=== PATIENT | female | born 1940 | race Caucasian/White ===

== ENCOUNTER 2022-05-09 21:10 | Observation (INO) | payer MEDICARE, SELFPAY ==
[2022-05-09] VITALS (11 sets, daily range): BP systolic 176–229; BP diastolic 99–122; PULSE 81–90; RESP 13–21; TEMP 36.4; O2SAT 96–99
--- NOTE | ~2022-05-09 | CT_ITS ---
EXAMINATION: CT abdomen pelvis wo con DATE: 05/09/2022 23:55 INDICATION: Lower abdominal pain, nausea and anorexia. TECHNIQUE: Computed tomography (CT) of the abdomen and pelvis was performed without intravenous contr ast. Automated exposure control and iterative reconstruction technique were employed. The dose-length product was 179.16 mGy-cm. COMPARISON: None FINDINGS: Atelectasis at the medial left lower lobe along side a moderate to large sliding-type hiatal hernia a nd tortuous thoracic aorta. Small left pleural effusion. Right lung remains clear. Cardiomegaly. Smal l pericardial effusion. Atherosclerotic coronary artery calcification and aortic valve calcification. Cholecystectomy clips at the gallbladder fossa. Liver, spleen and bilateral adrenal glands are yahir l. Small bilateral renal cysts, the largest on the right measuring 1.4 cm. There is mild colonic dive rticulosis with a sigmoid predominance. There is no adjacent inflammatory change to suggest divertic ulitis. Loop of nonobstructed small bowel extends into a small infraumbilical ventral hernia position ed along the inferomedial margin of a prior right lower quadrant ventral hernia mesh repair. There ap pears be some wall thickening and inflammatory stranding along the duodenum suggesting duodenitis. In flammatory stranding is also present around the head of the pancreas and differential would include a cute interstitial pancreatitis. Bilateral small fat-containing inguinal hernias. The appendix is not visualized. No pericecal inflammatory change to suggest acute appendicitis. Bladder is normal. No andrea e intraperitoneal gas or fluid. No pathologically enlarged abdominal or pelvic lymphadenopathy. Mild to moderate lumbar spondylosis. IMPRESSION: 1. Wall thickening and inflammatory stranding at the duodenum consistent with duodenitis which most l ikely either infectious or inflammatory in etiology. This could also be due to acute interstitial quevedo creatitis and would correlate with amylase and lipase levels. 2. Nonobstructed loop of small bowel extends into a small infraumbilical ventral hernia along side a prior right lower quadrant hernia mesh repair. 3. Moderate to large sliding-type hiatal hernia. 4. Small left pleural effusion. 5. Cardiomediastinal and small pericardial effusion. Reviewed, dictated and finalized at location A. IMPRESSION: 1. Wall thickening and inflammatory stranding at the duodenum consistent with d uodenitis which most likely either infectious or inflammatory in etiology. This could also be due to acute interstitial pancreatitis and would correlate with amylase and lipase levels. 2. Nonobstructed loop of small bowel extends into a small infraumbilical ventra l hernia along side a prior right lower quadrant hernia mesh repair. 3. Moderate to large sliding-type hiatal hernia. 4. Small left pleural effusion. 5. Cardiomediastinal and small pericardial effusion.
--- NOTE | ~2022-05-09 | XR_ITS ---
EXAMINATION: XR chest 2V DATE: 05/09/2022 22:23 INDICATION: Weakness. TECHNIQUE: frontal view of the chest was obtained. COMPARISON: None FINDINGS: Likely small bilateral pleural effusions with mild blunting at the bilateral posterior sulci. No othe r airspace opacities, pulmonary edema or pneumothorax. Cardiomegaly. Moderate-sized retrocardiac hiat al hernia. Cholecystectomy clips in right upper quadrant. Multiple surgical clips at the left side of the neck. Incompletely visualized fracture suggested at the left greater tuberosity. IMPRESSION: 1. Likely small bilateral pleural effusions. 2. Cardiomegaly. 3. Moderate-sized hiatal hernia. 4. Suggestion of a minimally displaced fracture at the greater tuberosity of the proximal left humeru s. Appearance suggests this is subacute or chronic. Correlate for history of prior trauma. Reviewed, dictated and finalized at location A. IMPRESSION: 1. Likely small bilateral pleural effusions. 2. Cardiomegaly. 3. Moderate-sized hiatal hernia. 4. Suggestion of a minimally displaced fracture at the greater tuberosity of th e proximal left humerus. Appearance suggests this is subacute or chronic. Corre late for history of prior trauma.
--- NOTE | 2022-05-09 22:11 | ECG_ITS ---
Measurements Intervals [place] Rate: 81 P: [place]: 0 QRS: -2 QRSD: 80 T: 202 QT: 389 QTc: 454 Interpretive Statements ECTOPIC ATRIAL RHYTHM CANNOT RULE OUT SEPTAL INFARCT, AGE INDETERMINATE BORDERLINE T WAVE ABNORMALITY- DIFFUSE LEADS ABNORMAL ECG NO PREVIOUS ECG AVAILABLE FOR COMPARISON Electronically Signed On 05-10-2022 7:26:38 CDT by Xavier De León D.O.
--- NOTE | 2022-05-09 22:35 | ED.GENADULT ---
HPI - General Adult General Chief complaint: Unspecified Stated complaint: not feeling well after teeth pulled Time Seen by Provider: 05/09/22 22:11 Source: patient and family Mode of arrival: wheelchair Limitations: no limitations History of Present Illness HPI narrative: This is a 81 year old female that presents to the ER for generalized weakness. Reports she had several teeth pulled last week. Since the procedure she has mild wanted to eat much. She has been reporting nausea and abdominal discomfort. She has not been taking any of her medications. Denies fever or vomiting. Related Data Home Medications Medication Instructions Recorded Confirmed albuterol sulfate 90 mcg/actuation inhalation 05/09/22 05/09/22 aerosol inhaler aspirin 05/09/22 atorvastatin 10 mg tablet mg 05/09/22 hydralazine 50 mg tablet mg 05/09/22 hydroxyzine HCl 25 mg tablet mg 05/09/22 levetiracetam 1,000 mg tablet mg PO 05/09/22 metoprolol tartrate 50 mg tablet mg 05/09/22 omeprazole 20 mg capsule,delayed mg 05/09/22 release primidone 50 mg tablet mg 05/09/22 sertraline 50 mg tablet mg 05/09/22 Allergies Allergy/AdvReac Type Severity Reaction Status Date / Time acetaminophen [From [place]] Allergy Nausea and Verified 05/09/22 21:21 Vomiting clarithromycin Allergy Rash Verified 05/09/22 21:21 codeine Allergy Nausea and Verified 05/09/22 21:21 Vomiting hydrocodone [From [place]] Allergy Nausea and Verified 05/09/22 21:21 Vomiting Iodine and Iodide Containing Allergy Rash Verified 05/09/22 21:21 Produc Latex, Natural Rubber Allergy Hives Verified 05/09/22 21:21 nifedipine Allergy Unknown Verified 05/09/22 21:21 oxycodone Allergy Hives Verified 05/09/22 21:21 prednisone Allergy Unknown Verified 05/09/22 21:21 propoxyphene Allergy Nausea Verified 05/09/22 21:21 Sulfa (Sulfonamide Allergy Rash Verified 05/09/22 21:21 Antibiotics) sulfanilamide Allergy Vomiting Verified 05/09/22 21:21 tetracycline Allergy Rash Verified 05/09/22 21:21 potassium bicarb Allergy Other Uncoded 05/09/22 21:21 Review of Systems Review of Systems: CONSTITUTIONAL: Denies fever ENT: Reports dentalgia CARDIOVASCULAR: Denies chest pain, or edema. RESPIRATORY: Denies dyspnea. GASTROINTESTINAL: Reports abdominal pain, nausea. Denies vomiting, or diarrhea. GENITOURINARY: Denies dysuria NEUROLOGIC: Reports generalized weakness. All systems reviewed & are unremarkable except as noted in HPI and below [facility] Past Medical History Medical History (Updated 05/10/22 @ 02:42 by Johanna Ruelas PA-C) History of gastroesophageal reflux (GERD) History of hyperlipidemia History of hypertension Social History Social History (Updated 05/09/22 @ 22:41 by Johanna Ruelas PA-C) Smoking status: Never smoker Exam Narrative: GENERAL: Elderly, thin, and in no acute distress. HEAD: Normocephalic, atraumatic. EYES: EOMI. ENT: Nares clear, no rhinorrhea or epistaxis. Mucous membranes moist. Oropharynx without tonsillar hypertrophy exudate or other lesions. NECK: Supple. No adenopathy or masses. CHEST: Clear to auscultation. No respiratory distress. No wheezes rales or rhonchi HEART: Regular rate and rhythm. No murmur heard. Normal peripheral pulses. ABDOMEN: Soft, nondistended, normal active bowel sounds. Mild tenderness to palpation throughout the abdomen, without guarding EXTREMITIES: Normal range of motion. No edema. SKIN: Warm, dry, no rash. NEURO: No focal deficits. Alert and oriented x3. PSYCH: Normal mood and affect Course Consultations Consultation #1: Spoke with hospitalist about patient and workup who accepts admission Date: 05/10/22 Vital Signs Vital signs: Vital Signs Temperature 97.6 F 05/09/22 21:13 Pulse Rate 90 05/09/22 21:13 Respiratory Rate 20 05/09/22 21:13 Blood Pressure 229/105 H 05/09/22 21:13 Pulse Oximetry 99 05/09/22 21:13 Oxygen Delivery Room Air 05/09/22 21:13 Temper
[2022-05-09 22:58] LABS: Basophils Percent Auto 0.2 % (0.2-1.2); Hematocrit 28.8 % (37.0-47.0); Hemoglobin 8.4 g/dL (12.0-15.0); Immature Granulocyte Absolute 0.06 K/mm3 (0.00-0.031); Immature Granulocyte Percent A 0.5 % (0-0.5); Lymphocytes Absolute Auto 1.09 K/mm3 (0.9-3.2); Lymphocytes Percent Auto 8.6 % (18.3-44.2); Mean Corpuscular HGB Conc 29.2 g/dl (32-36); Mean Corpuscular Hemoglobin 22.2 pg (26-34); Mean Corpuscular Volume 76.2 fl (80-100); Mean Platelet Volume 9.7 fl (7.4-10.4); Monocytes Absolute Auto 0.8 K/mm3 (0.1-0.6); Monocytes Percent Auto 6.1 % (2.6-8.5); Neutrophils Absolute Auto 10.7 K/mm3 (1.3-6.7); Neutrophils Percent Auto 84.6 % (45.5-73.1); Platelet Count Result 382 k/mm3 (150-375); Red Blood Count 3.78 M/mm3 (4.2-5.4); Red Cell Distribution Width 20.6 % (11.5-14.5); White Blood Count 12.7 K/mm3 (4.5-10.0)
[2022-05-09] MEDS: ONDANSETRON INJ 4 MG/2 ML VIAL IV PUSH (23:02)
[2022-05-09] MEDS: SODIUM CHLORIDE 0.9% IV 1,000 ML 125 ML IV CONT (23:02)
[2022-05-09] MEDS: FAMOTIDINE 20 MG/2 ML VIAL IV PUSH (23:04)
[2022-05-09 23:06] LABS: INR 1.2; Prothrombin Time 14.5 Seconds (11.1-14.7)
[2022-05-09 23:07] LABS: Partial Thromboplastin Time 32.1 SECONDS (22.3-36.8)
[2022-05-09 23:08] LABS: Lactic Acid Reflex 0.9 mmol/L (0.7-2.0)
[2022-05-09 23:09] LABS: Alanine Aminotransferase 11 U/L (6-35); Albumin Level 3.6 g/dL (3.5-5.1); Alkaline Phosphatase 70 U/L (38-126); Anion Gap 9 mmol/L (8-16); Aspartate Amino Transferase 27 U/L (14-36); Bilirubin,Total 0.5 mg/dL (0.2-1.3); Blood Urea Nitrogen 41 mg/dL (7-17); Calcium 8.7 mg/dL (8.4-10.2); Carbon Dioxide 22 mmol/L (22-30); Chloride 101 mmol/L (98-107); Estimated Glomerular Filt Rate 39; Glucose 115 mg/dL (65-110); Lipase 61 U/L (23-300); Potassium 3.6 mmol/L (3.4-5.0); Sodium 132 mmol/L (137-145)
[2022-05-09 23:13] LABS: Hypochromasia 2+ (NORMAL); Platelet Estimate Adequate (Adequate)
[2022-05-09 23:14] LABS: Anisocytosis 2+ (NORMAL); Ovalocytes 1+ (NORMAL)
[2022-05-09 23:18] LABS: NT Pro B Type Natriuretic Pept > 35000 pg/mL (5-100)
--- NOTE | 2022-05-09 23:23 | PC.NURSE ---
Pt unable to void at this time. Made aware of need for ua.
[2022-05-10] VITALS (19 sets, daily range): BP systolic 133–186; BP diastolic 66–107; PULSE 48–90; RESP 16–20; TEMP 36.1–36.4; O2SAT 96–100; BMI 18.6
--- NOTE | 2022-05-10 00:38 | PC.NURSE ---
Pt woken up for ua. States thinks her pain is better at present time.
[2022-05-10 00:42] LABS: Appearance Urine Clear (Clear); Bilirubin Urine 1+ (Negative); Blood Urine Negative (Negative); Color Urine Yellow (Yellow); Glucose Urine UA Negative (Negative); Ketones Urine 1+ mg/dL (Negative); Leukocyte Esterase Ur Negative LEU/UL (Negative); Nitrate Urine Negative (Negative); Protein Urine 3+ mg/dL (Negative); Urobilinogen Urine 0.2 mg/dL (<2.0)
[2022-05-10 00:59] LABS: Add Urine Microscopic? YES
[2022-05-10 01:00] LABS: RBC Urine 0-2 /hpf (0-2)
[2022-05-10] MEDS: METOPROLOL TARTRATE INJ 5 MG/5 ML VIAL IV PUSH (01:00)
[2022-05-10 01:01] LABS: Squamous Epithelial Cell Urine Few /hpf (Few)
--- NOTE | 2022-05-10 02:30 | PC.NURSE ---
BRANNON Rothman speaking with pt's PMD.
--- NOTE | 2022-05-10 02:53 | PC.NURSE ---
Pt noted to be out in the hallway with daughter, has blood to her nightdress. When approached, states I'm going home. I can't wait for that doctor to call back! . Explained that PA has spoken with the pt's MD and that she was coming in to speak with her. Johanna SOUTH and Dr. Gardner aware of pt wishing to leave.
--- NOTE | 2022-05-10 02:55 | PC.NURSE ---
BRANNON Spencer at bedside discussing plan of care.
[2022-05-10] MEDS: METOPROLOL TARTRATE 50 MG TAB PO ×3 (03:03→20:17)
--- NOTE | 2022-05-10 03:14 | PC.NURSE ---
Report given to ARCELIA Deng, to continue care. Pt refuses to get into bed and place bodywork therapist. Awaiting bed assignment.
--- NOTE | 2022-05-10 04:00 | ADMGEN ---
This patient, Kell Avila, was admitted to 2 Medical Room 255-01. Patient/family oriented to hospital policies and general routines including ID bracelet, bed and alarms, visiting hours, pain management, procedures, bathroom and other care routines, personal items, smoking policy, room service/diet, and visiting hours. Information on how to activate the Rapid Response Team has been discussed. Patient/Family are encouraged to report perceived risks to care and to ask questions if they do not understand what they are told or what they should do.
[2022-05-10] MEDS: SODIUM CHLORIDE 0.9% IV 1,000 ML 75 ML IV CONT ×2 (04:39→19:22)
[2022-05-10] MEDS: PANTOPRAZOLE 40 MG TABLET PO ×2 (10:11→20:17)
--- NOTE | 2022-05-10 10:43 | PM.CNGS ---
Assessment and Plan Assessment and plan (1) Incisional hernia: Code(s): K43.2 - Incisional hernia without obstruction or gangrene Status: Acute Assessment and Plan: exam benign, easily reducible, no emergent surgical indications (2) Enteritis: Code(s): K52.9 - Noninfective gastroenteritis and colitis, unspecified Status: Acute Assessment and Plan: exam benign, continue to encourage p.o. intake, having bowel function (3) Generalized weakness: Code(s): R53.1 - Weakness Status: Acute Assessment and Plan: likely secondary to multiple medical issues including CHF exacerbation, management per hospitalist History of Present Illness Consult details Consult date: 05/10/22 Reason for consult: hernia Requesting physician: Naz Gardner DO Narrative: The patient is an 81-year-old female with multiple medical issues presenting with likely CHF exacerbation. The patient reports she had multiple teeth pulled last week and has been subsequently very weak and debilitated. The patient reports that she has had some mild nausea and abdominal pain and really has had no appetite. Workup, including labs and imaging, are significant for likely CHF exacerbation and lower abdominal ventral hernia containing small bowel. The patient denies any abdominal pain at this time, although she complains of poor appetite. The patient reports that she had bowel movements. Review of Systems Constitutional: Constitutional: Reports as per HPI, Reports anorexia, Denies chills, Reports fatigue, Denies fever(s), Reports lethargy, Reports malaise, Reports poor appetite, Reports weakness, Denies weight gain and Denies weight loss Eyes: Eyes: Reports no additional eye complaints ENT: Reports system reviewed and no additional complaints, except as documented Cardiovascular: Cardiovascular: Reports as per HPI, Denies chest pain, Reports edema and Reports dyspnea on exertion Respiratory: Respiratory: Reports dyspnea on exertion Gastrointestinal: Gastrointestinal: Reports as per HPI, Reports abdominal pain, Denies constipation, Reports nausea and Denies vomiting Genitourinary: Genitourinary: Reports no additional female genitourinary complaints Musculoskeletal: Musculoskeletal: Reports no additional musculoskeletal complaints Integumentary/Breasts: Skin/Breast: Reports system reviewed and no additional complaints, except as docu Neurologic: Reports system reviewed and no additional complaints, except as documented Psychiatric: Psychiatric: Reports no additional psychiatric complaints Endocrine: Endocrine: Reports no additional endocrine complaints Hematologic/Lymphatic: Hematologic/Lymphatic: Reports no additional hematologic/lymphatic complaints Allergic/Immunologic: Allergic/Immunologic: Reports no additional allergic/immunologic complaints PMFSH Past Medical History Medical History History of gastroesophageal reflux (GERD) History of hyperlipidemia History of hypertension Family History Family History Other Unknown family medical history Social History Social History Smoking status: Never smoker Second hand tobacco smoke exposure: No Alcohol intake: never Substance use: never Spiritual care concerns: No Meds Home Medications and Allergies Home Medications Medication Instructions Recorded Confirmed Type metoprolol tartrate 50 mg tablet 50 mg PO BID 05/09/22 05/10/22 History omeprazole 20 mg capsule,delayed 20 mg PO BID 05/09/22 05/10/22 History release Allergies Allergy/AdvReac Type Severity Reaction Status Date / Time acetaminophen [From [place]] Allergy Nausea and Verified 05/09/22 21:21 Vomiting clarithromycin Allergy Rash Verified 05/09/22 21:21 codeine Allergy Nausea and Verified 05/09/22 21
--- NOTE | 2022-05-10 12:35 | PM.IMHP ---
H&P: HPI History of Present Illness Date/Time: 05/10/22 12:35 Chief Complaint: This is a 81 year old female that presents to the ER for generalized weakness. Reports she had several teeth pulled last week.? Since the procedure she has mild wanted to eat much.? She has been reporting nausea and abdominal discomfort.? She has not been taking any of her medications.? Denies fever or vomiting. [facility] Past Medical History Medical History History of gastroesophageal reflux (GERD) History of hyperlipidemia History of hypertension Family History Family History Other Unknown family medical history Social History Social History Smoking status: Never smoker Second hand tobacco smoke exposure: No Alcohol intake: never Substance use: never Spiritual care concerns: No Meds Home Medications and Allergies Home Medications Medication Instructions Recorded Confirmed Type metoprolol tartrate 50 mg tablet 50 mg PO BID 05/09/22 05/10/22 History omeprazole 20 mg capsule,delayed 20 mg PO BID 05/09/22 05/10/22 History release Allergies Allergy/AdvReac Type Severity Reaction Status Date / Time acetaminophen [From [place]] Allergy Nausea and Verified 05/09/22 21:21 Vomiting clarithromycin Allergy Rash Verified 05/09/22 21:21 codeine Allergy Nausea and Verified 05/09/22 21:21 Vomiting hydrocodone [From [place]] Allergy Nausea and Verified 05/09/22 21:21 Vomiting Iodine and Iodide Containing Allergy Rash Verified 05/09/22 21:21 Produc Latex, Natural Rubber Allergy Hives Verified 05/09/22 21:21 nifedipine Allergy Unknown Verified 05/09/22 21:21 oxycodone Allergy Hives Verified 05/09/22 21:21 prednisone Allergy Unknown Verified 05/09/22 21:21 propoxyphene Allergy Nausea Verified 05/09/22 21:21 Sulfa (Sulfonamide Allergy Rash Verified 05/09/22 21:21 Antibiotics) sulfanilamide Allergy Vomiting Verified 05/09/22 21:21 tetracycline Allergy Rash Verified 05/09/22 21:21 potassium bicarb Allergy Other Uncoded 05/09/22 21:21 Vital Signs Vital Signs - 24 hr 05/09/22 21:13 05/09/22 22:44 05/09/22 21:43 Temperature 97.6 F Pulse Rate 90 83 Respiratory Rate 20 Blood Pressure 229/105 H Pulse Oximetry 99 98 Oxygen Delivery Room Air 05/09/22 21:44 05/09/22 21:45 05/09/22 22:00 Temperature Pulse Rate 88 89 82 Respiratory Rate 13 21 H 21 H Blood Pressure 185/122 H Pulse Oximetry 98 98 99 Oxygen Delivery 05/09/22 22:02 05/09/22 22:15 05/09/22 22:30 Temperature Pulse Rate 81 86 85 Respiratory Rate 19 20 20 Blood Pressure 209/102 H Pulse Oximetry 98 98 99 Oxygen Delivery 05/09/22 22:36 05/10/22 00:27 05/10/22 01:00 Temperature Pulse Rate 87 78 90 Respiratory Rate 19 18 Blood Pressure 176/99 H 154/92 H Pulse Oximetry 99 96 Oxygen Delivery 05/10/22 01:33 05/09/22 23:15 05/10/22 00:49 Temperature Pulse Rate 66 81 76 Respiratory Rate 18 21 H 16 Blood Pressure 133/85 Pulse Oximetry 97 96 97 Oxygen Delivery 05/10/22 01:01 05/10/22 01:46 05/10/22 02:31 Temperature Pulse Rate 80 67 64 Respiratory Rate 17 20 19 Blood Pressure 176/107 H 186/90 H 172/88 H Pulse Oximetry 98 97 98 Oxygen Delivery 05/10/22 03:03 05/10/22 04:00 05/10/22 04:00 Temperature 97.0 F L Pulse Rate 69 61 58 L Respiratory Rate 17 Blood Pressure 151/91 H Pulse Oximetry 100 Oxygen Delivery 05/10/22 04:04 05/10/22 10:13 05/10/22 08:00 Temperature Pulse Rate 58 L 59 L Respiratory Rate Blood Pressure Pulse Oximetry Oxygen Delivery Room Air 05/10/22 08:00 Temperature Pulse Rate 54 L Respiratory Rate Blood Pressure Pulse Oximetry Oxygen Delivery H&P: Results Labs Labs: Short CBC 05/09/22 Range/Units 22:51 WBC
[2022-05-11] VITALS: PULSE 57
[2022-05-11 04:00] VITALS: PULSE 54
[2022-05-11 05:20] VITALS: BP 150/72; PULSE 50; RESP 17; TEMP 36.8; O2SAT 95
[2022-05-11 05:32] LABS: Hematocrit 24.2 % (37.0-47.0); Mean Corpuscular HGB Conc 27.3 g/dl (32-36); Mean Corpuscular Hemoglobin 22.1 pg (26-34); Mean Corpuscular Volume 81.2 fl (80-100); Mean Platelet Volume 9.6 fl (7.4-10.4); Platelet Count Result 314 k/mm3 (150-375); Red Blood Count 2.98 M/mm3 (4.2-5.4); Red Cell Distribution Width 20.5 % (11.5-14.5); White Blood Count 7.6 K/mm3 (4.5-10.0)
[2022-05-11 05:36] LABS: Anion Gap 6 mmol/L (8-16); Blood Urea Nitrogen 33 mg/dL (7-17); Calcium 7.9 mg/dL (8.4-10.2); Carbon Dioxide 19 mmol/L (22-30); Chloride 110 mmol/L (98-107); Estimated Glomerular Filt Rate 36; Glucose 103 mg/dL (65-110); Potassium 3.5 mmol/L (3.4-5.0); Sodium 135 mmol/L (137-145)
[2022-05-11 05:41] LABS: Hemoglobin 6.6 g/dL (12.0-15.0)
[2022-05-11 05:45] LABS: NT Pro B Type Natriuretic Pept 15600 pg/mL (5-100)
--- NOTE | 2022-05-11 06:48 | PC.NURSE ---
tried to call upholstery sewer and blood bank to find out why type and screen has not been drawn. Cannot get anyone to answer.
[2022-05-11 08:02] VITALS: BP 146/89; PULSE 48; RESP 17; O2SAT 100
[2022-05-11 08:05] VITALS: PULSE 48
[2022-05-11] MEDS: FUROSEMIDE INJ 40 MG/4 ML VIAL IV PUSH (08:05)
[2022-05-11] MEDS: PANTOPRAZOLE 40 MG TABLET PO (08:05)
[2022-05-11 08:49] LABS: Hematocrit 26.7 % (37.0-47.0); Hemoglobin 7.4 g/dL (12.0-15.0)
--- NOTE | 2022-05-30 10:31 | P.PNIM_ITS ---
Progress Note: A&P Assessment and Plan Plan patient fany WATKINS Subjective Date/time seen: 05/11/22 10:31 Objective Data Meds/Results Radiology Results: ITS Impressions Chest X-Ray 05/09/22 22:24 IMPRESSION: 1. Likely small bilateral pleural effusions. 2. Cardiomegaly. 3. Moderate-sized hiatal hernia. 4. Suggestion of a minimally displaced fracture at the greater tuberosity of the proximal left humerus. Appearance suggests this is subacute or chronic. Correl ate for history of prior trauma. Abdomen/Pelvis CT 05/10/22 12:00 IMPRESSION: 1. Wall thickening and inflammatory stranding at the duodenum consistent with duodenitis which most likely either infectious or inflammatory in etiology. This could also be due to acute interstitial pancreatitis and would correlate with amylase and lipase levels. 2. Nonobstructed loop of small bowel extends into a small infraumbilical ventral hernia along side a prior right lower quadrant hernia mesh repair. 3. Moderate to large sliding-type hiatal hernia. 4. Small left pleural effusion. 5. Cardiomediastinal and small pericardial effusion.
== END 2022-05-11 09:35 | disposition home or self-care (01) ==
LOC: ANHED 05-10 02:42 → ANH2MED 05-10 03:37
PROVIDERS: Chiropractor; Physician Assistant; Admitting Provider Internal Medicine; Emergency Provider Emergency Medicine; Visit Provider Internal Medicine
DX: K43.2 Incisional hernia without obstruction or gangrene (principal); K52.9 Noninfective gastroenteritis and colitis, unspecified; R53.1 Weakness; Z98.818 Other dental procedure status; K21.9 Gastro-esophageal reflux disease without esophagitis; D72.829 Elevated white blood cell count, unspecified; I11.0 Hypertensive heart disease with heart failure; I50.9 Heart failure, unspecified; R63.0 Anorexia; Z68.1 Body mass index [BMI] 19.9 or less, adult; E78.5 Hyperlipidemia, unspecified; K44.9 Diaphragmatic hernia without obstruction or gangrene; R94.31 Abnormal electrocardiogram [ECG] [EKG]; Z79.51 Long term (current) use of inhaled steroids; Z79.82 Long term (current) use of aspirin; Z79.899 Other long term (current) drug therapy; Z53.29 Procedure and treatment not carried out because of patient's decision for other reasons
CPT/HCPCS: 36415; 71046; 74176; 80048; 80053; 81001; 83605; 83690; 83880; 85014; 85018; 85025; 85027; 85610; 85730; 86850; 86900; 86901; 86920; 93005; 96361; 96365; 96375; 97161; 97165; 99285; A9270; G0378; J0131; J1940; J2405; J2543; J7030

== ENCOUNTER 2022-05-22 07:01 | Observation (INO) | payer MEDICARE, SELFPAY ==
[2022-05-22] VITALS (16 sets, daily range): BP systolic 158–223; BP diastolic 62–119; PULSE 58–71; RESP 14–22; TEMP 36.3–37.1; O2SAT 95–99; BMI 22.2
--- NOTE | ~2022-05-22 | XR_ITS ---
EXAMINATION: XR chest 1V portable INDICATION: Cold symptoms TECHNIQUE: Portable AP chest at 0852 hours COMPARISON: 05/09/2022 FINDINGS: Cardiomegaly is noted. There is a moderate-sized hiatal hernia. Small pleural effusions are present. There are minimal airspace opacities of the lung bases. No pneumothorax is identified. Ther e are surgical changes of the left neck. Cholecystectomy clips are noted. IMPRESSION: 1. Cardiomegaly. 2. Minimal airspace opacities of the lung bases, consistent with atelectasis versus pneumonia. 3. Small pleural effusions. Reviewed, dictated and finalized at location B. IMPRESSION: 1. Cardiomegaly. 2. Minimal airspace opacities of the lung bases, consistent with atelectasis ve rsus pneumonia. 3. Small pleural effusions.
--- NOTE | ~2022-05-22 | XR_ITS ---
EXAMINATION: XR chest 2V Exam Date/Time: 05/24/2022 18:40 CDT HISTORY: abnormal cxr Comparison: 05/22/2022 and 05/09/2022. RESULT: Lines, tubes, and devices: Left lower neck surgical clips. Cholecystectomy clips. Lungs and pleura: Improved diffuse reticular opacities. Improved aeration of the left lung base. Sen escent changes and bibasilar linear scar/atelectasis. Cardiomediastinal silhouette: Stable cardiomegaly, hiatal hernia and aortic ectasia. Other: No acute osseous or upper abdominal finding. IMPRESSION: Improved pulmonary opacities likely reflecting improved edema and basilar atelectasis. No acute cardi opulmonary process. Reviewed, dictated and finalized at location K. IMPRESSION: Improved pulmonary opacities likely reflecting improved edema and basilar atele ctasis. No acute cardiopulmonary process.
--- NOTE | ~2022-05-22 | CT_ITS ---
EXAMINATION: CT brain wo con DATE: 05/24/2022 10:14 INDICATION: Change in level of consciousness. TECHNIQUE: Computed tomography (CT) of the head was performed without intravenous contrast. The mA wa s adjusted according to patient size. Iterative reconstruction technique was employed. The dose-lengt h product was 529.67 mGy-cm. COMPARISON: None FINDINGS: There are old infarcts involving the bilateral basal ganglia and thalami. There are scatter ed areas of low attenuation in the cerebral white matter. There is no intracranial hemorrhage, acute infarction, or abnormal intracranial mass lesion. The ventricles are normal in size. There is mucosal thickening in the paranasal sinuses. The orbits are normal. The mastoid air cells are normal. IMPRESSION: 1. 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 2. Moderate nonspecific cerebral white matter disease, which likely represents chronic small vessel i schemic disease. Reviewed, dictated and finalized at location A. IMPRESSION: 1. 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 2. Moderate nonspecific cerebral white matter disease, which likely represents chronic small vessel ischemic disease.
--- NOTE | ~2022-05-22 | CT_ITS ---
EXAMINATION: CT abdomen pelvis wo con DATE: 05/23/2022 08:52 INDICATION: Anemia and weight loss TECHNIQUE: Computed tomography (CT) of the abdomen and pelvis was performed without intravenous contr ast. The dose-length product (DLP) was 155.47 mGy-cm. Automated exposure control and iterative recons truction technique were employed. COMPARISON: 05/09/2022 FINDINGS: Minimal dependent atelectasis is present in the lung bases. Cardiomegaly is noted. There is a large hiatal hernia. There is a small left pleural effusion. A trace pericardial effusion is noted . The gallbladder is surgically absent. The liver, spleen, pancreas, and adrenal glands are normal. C ysts of the kidneys measure up to 1.4 cm on the right. Previously described wall thickening and adjac ent fat stranding of the duodenum has resolved. There is calcified atherosclerosis of the aorta and m any of the other arteries. No pathologically enlarged abdominal or pelvic lymph nodes are identified. There is no free intraperitoneal gas or evidence of bowel obstruction. The bladder is decompressed b y Acldwell catheter. There are bilateral inguinal hernias containing fat. There is an infraumbilical mid line ventral hernia containing nonobstructed small bowel. There is severe lumbar spondylosis. IMPRESSION: 1. No CT correlate for the patient's symptoms. Reviewed, dictated and finalized at location B.
[2022-05-22 08:06] LABS: Basophils Absolute Auto 0.1 K/mm3 (0.0-0.1); Basophils Percent Auto 0.8 % (0.2-1.2); Eosinophils Absolute Auto 0.2 K/mm3 (0-0.3); Eosinophils Percent Auto 2.4 % (0-4.4); Hemoglobin 7.1 g/dL (12.0-15.0); Immature Granulocyte Absolute 0.05 K/mm3 (0.00-0.031); Immature Granulocyte Percent A 0.5 % (0-0.5); Lymphocytes Absolute Auto 1.67 K/mm3 (0.9-3.2); Lymphocytes Percent Auto 17.7 % (18.3-44.2); Mean Corpuscular HGB Conc 28.4 g/dl (32-36); Mean Corpuscular Hemoglobin 21.6 pg (26-34); Mean Platelet Volume 9.7 fl (7.4-10.4); Monocytes Absolute Auto 0.8 K/mm3 (0.1-0.6); Neutrophils Absolute Auto 6.6 K/mm3 (1.3-6.7); Neutrophils Percent Auto 70.6 % (45.5-73.1); Platelet Count Result 368 k/mm3 (150-375); Red Blood Count 3.29 M/mm3 (4.2-5.4); Red Cell Distribution Width 19.9 % (11.5-14.5); White Blood Count 9.4 K/mm3 (4.5-10.0)
[2022-05-22 08:21] LABS: Alanine Aminotransferase 20 U/L (6-35); Albumin Level 3.7 g/dL (3.5-5.1); Alkaline Phosphatase 88 U/L (38-126); Anion Gap 10 mmol/L (8-16); Aspartate Amino Transferase 29 U/L (14-36); Bilirubin,Total 0.5 mg/dL (0.2-1.3); Blood Urea Nitrogen 34 mg/dL (7-17); Calcium 8.6 mg/dL (8.4-10.2); Carbon Dioxide 21 mmol/L (22-30); Chloride 100 mmol/L (98-107); Estimated Glomerular Filt Rate 29; Glucose 98 mg/dL (65-110); Potassium 4.3 mmol/L (3.4-5.0); Sodium 131 mmol/L (137-145)
[2022-05-22 08:26] LABS: INR 1.1
[2022-05-22 08:29] LABS: Anisocytosis 1+ (NORMAL); Hypochromasia 2+ (NORMAL); Ovalocytes 1+ (NORMAL); Target Cells 1+ (NORMAL)
[2022-05-22 08:30] LABS: Microcytosis 1+ (NORMAL)
--- NOTE | 2022-05-22 08:33 | ED.GENADULT ---
HPI - General Adult General Chief complaint: Recheck/Abnormal Lab/Rx Stated complaint: high BP Time Seen by Provider: 05/22/22 08:24 Source: patient, family and RN notes reviewed Mode of arrival: ambulatory Limitations: no limitations History of Present Illness HPI narrative: 81 years old white female lives with her daughter who brought her to the emergency room because elevated blood pressure noticed this morning. Patient does take her blood pressure medication as needed, did not take it prior to arrival to the emergency room today. Patient reported having head cold for about 1-1/2-week ago, also complaining of general fatigue, poor appetite and tiredness for a while. Her daughter have no time to manage her medication or taking care of her. Related Data Home Medications Medication Instructions Recorded Confirmed metoprolol tartrate 50 mg tablet 50 mg PO BID 05/09/22 05/10/22 omeprazole 20 mg capsule,delayed 20 mg PO BID 05/09/22 05/10/22 release Allergies Allergy/AdvReac Type Severity Reaction Status Date / Time acetaminophen [From [place]] Allergy Nausea and Verified 05/09/22 21:21 Vomiting clarithromycin Allergy Rash Verified 05/09/22 21:21 codeine Allergy Nausea and Verified 05/09/22 21:21 Vomiting hydrocodone [From [place]] Allergy Nausea and Verified 05/09/22 21:21 Vomiting Iodine and Iodide Containing Allergy Rash Verified 05/09/22 21:21 Produc Latex, Natural Rubber Allergy Hives Verified 05/09/22 21:21 nifedipine Allergy Unknown Verified 05/09/22 21:21 oxycodone Allergy Hives Verified 05/09/22 21:21 prednisone Allergy Unknown Verified 05/09/22 21:21 propoxyphene Allergy Nausea Verified 05/09/22 21:21 Sulfa (Sulfonamide Allergy Rash Verified 05/09/22 21:21 Antibiotics) sulfanilamide Allergy Vomiting Verified 05/09/22 21:21 tetracycline Allergy Rash Verified 05/09/22 21:21 potassium bicarb Allergy Other Uncoded 05/09/22 21:21 Review of Systems Review of Systems: All systems reviewed & are unremarkable except as noted in HPI and below PMFSH Past Medical History Medical History History of gastroesophageal reflux (GERD) History of hyperlipidemia History of hypertension Family History Family History Other Unknown family medical history Social History Social History Smoking status: Never smoker Second hand tobacco smoke exposure: No Alcohol intake: never Substance use: never Spiritual care concerns: No Exam Narrative: General appearance: Well-developed, well-nourished, looks weak and frail Skin: Normal color Head: Normocephalic, nontraumatic Eyes: Clear conjunctiva ENT: Oropharynx normal, ears normal, nose normal Neck: Supple, nontender Chest and respiratory: Airway patent, no respiratory distress, no accessory muscle use Heart: Regular rate/rhythm Abdomen: Soft, nontender, no organomegaly, quiet bowel sounds Vascular: Normal peripheral pulses, normal capillary refill. 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
--- NOTE | 2022-05-22 08:34 | ECG_ITS ---
Measurements Intervals [place] Rate: 67 P: 19 [place]: 143 QRS: -11 QRSD: 82 T: 60 QT: 407 QTc: 430 Interpretive Statements SINUS RHYTHM CANNOT RULE OUT SEPTAL INFARCT, AGE INDETERMINATE BORDERLINE ST-T WAVE ABNORMALITY- DIFFUSE LEADS BASELINE ARTIFACT- II, III, AVF, V1, V4-V6 ABNORMAL ECG COMPARED TO ECG 05/09/2022 23:10:11 SINUS RHYTHM NOW PRESENT Electronically Signed On 05-22-2022 8:59:46 CDT by Xavier De León D.O.
[2022-05-22] MEDS: METOPROLOL TARTRATE 50 MG TAB PO ×2 (08:51→20:05)
[2022-05-22] MEDS: NITROGLYCERIN OINTMENT 1 INCH DOSE TRANSDERM (08:51)
[2022-05-22 09:09] LABS: Appearance Urine Clear (Clear); Bilirubin Urine Negative (Negative); Blood Urine Negative (Negative); Color Urine Yellow (Yellow); Glucose Urine UA Negative (Negative); Ketones Urine Negative (Negative); Leukocyte Esterase Ur Negative LEU/UL (Negative); Nitrate Urine Negative (Negative); Protein Urine 2+ mg/dL (Negative); Urobilinogen Urine 0.2 mg/dL (<2.0); pH Urine 6.5 (5.0-9.0)
[2022-05-22 09:18] LABS: NT Pro B Type Natriuretic Pept > 35000 pg/mL (5-100); Troponin I 0.066 ng/mL (0.000-0.034)
[2022-05-22 09:27] LABS: Add Urine Microscopic? YES
[2022-05-22] MEDS: FUROSEMIDE INJ 40 MG/4 ML VIAL 60 MG IV PUSH (10:10)
--- NOTE | 2022-05-22 12:51 | PM.IMHP ---
H&P: HPI History of Present Illness Date/Time: 05/22/22 12:51 Chief Complaint: High blood pressure Narrative: This is an 81-year-old female patient who resides with her daughter and son-in-law. The patient has hypertension and basically takes her medicine when she feels that she needs it. She is noncompliant at times. The patient had a head cold on and off for 1 and half weeks it was complaining head of generalized fatigue, poor appetite and tiredness. Her daughter does not have time to manage her medication or take care of her at this point. The patient stated that she has been in rehab in the past and she is a retired nurse. She stated that she feels that she does need to go to rehab for short period of time. The patient also tells me that she recently had her teeth pulled and that she has been having problems with her diet. She does not eat any bread because it sticks to the roof of her mouth. The patient stated that she is having a hard time finding things that she can each that will not stick to the roof of her mouth. It sounds like the patient may need pureed diet. Patient's H&H is 7.1 and 25.0 and had a repeated was 6.9 and 23.5. IM working up and anemia profile and had her typed and cross-matched for 2 units of packed red blood cells. Patient is chronically anemic. Patient's MCV is 76.0. We will check her for stool for occult blood. Patient's creatinine is 1.7 which her baseline is around 1.3-1.4. Her troponin is 0.066 [place] 0.[place] [address]. Patient was given Pepcid in the emergency room as well as IV Lasix. She was given hydralazine, Catapres, nitroglycerin ointment, and Lopressor for her elevated blood pressure. Blood pressure was 205/96 and is now 172/62. The patient is being admitted for observation status on the date of service of 05/22/2022. Review of Systems Review of Systems: See HPI All systems reviewed & are unremarkable except as noted in HPI and below Constitutional: Constitutional: Reports as per HPI and Reports no additional constitutional complaints Eyes: Eyes: Reports as per HPI and Reports no additional eye complaints ENT: Reports system reviewed and no additional complaints, except as documented and Reports Normal hearing present Cardiovascular: Cardiovascular: Reports no additional cardiovascular complaints Respiratory: Respiratory: Reports no additional respiratory complaints and Reports no additional respiratory complaints Gastrointestinal: Gastrointestinal: Reports as per HPI and Reports no additional gastrointestinal complaints Musculoskeletal: Musculoskeletal: Reports no additional musculoskeletal complaints Integumentary/Breasts: Skin/Breast: Reports system reviewed and no additional complaints, except as docu and Reports as per HPI Neurologic: Reports system reviewed and no additional complaints, except as documented, Reports as per HPI and Reports Normal hearing present Psychiatric: Psychiatric: Reports no additional psychiatric complaints and Reports as per HPI Endocrine: Endocrine: Reports no additional endocrine complaints Hematologic/Lymphatic: Hematologic/Lymphatic: Reports no additional hematologic/lymphatic complaints Allergic/Immunologic: Allergic/Immunologic: Reports no additional allergic/immunologic complaints [facility] Past Medical History Medical History (Updated 05/22/22 @ 15:55 by Janey Petre NP) Anemia CHF (congestive heart failure) History of gastroesophageal reflux (GERD) History of hyperlipidemia Hypertension Surgical History Surgical History (Updated 05/22/22 @ 12:57 by Janey Peter NP) H/O cataract extraction H/O tooth extraction H/O total thyroidectomy H/O: hysterectomy Hx of cholecystectomy S/P tonsillectomy Family History Family History (Updated 05/22/22 @ 12:54 by Janey Peter NP) Mother Cancer Sibling Leukemia Other Unknown family medical history Social History Social History (Updated 05/22/22 @ 15:58 by [place]
[2022-05-22] MEDS: hydrALAZINE HCL 20 MG/ML VIAL 10 MG IV PUSH (13:30)
[2022-05-22 13:38] LABS: Hematocrit 23.5 % (37.0-47.0)
[2022-05-22 13:41] LABS: Hemoglobin 6.9 g/dL (12.0-15.0)
[2022-05-22] MEDS: NITROGLYCERIN OINTMENT 1 INCH DOSE 2 INCH TRANSDERM (13:42)
--- NOTE | 2022-05-22 13:43 | PC.NURSE ---
Nitro order was verified with Dr. See who says he wants a total of 2 inches of nitro on the pt. The pt already has one inch on left chest and I am applying the second inch on her right chest.
[2022-05-22 14:11] LABS: Troponin I 0.063 ng/mL (0.000-0.034)
--- NOTE | 2022-05-22 15:25 | ADMGEN ---
This patient, Kell Avila, was admitted to 3 [facility] Surg Room 323-01 at 1505. Patient/family oriented to hospital policies and general routines including ID bracelet, bed and alarms, visiting hours, pain management, procedures, bathroom and other care routines, personal items, smoking policy, room service/diet, and visiting hours. Information on how to activate the Rapid Response Team has been discussed. Patient/Family are encouraged to report perceived risks to care and to ask questions if they do not understand what they are told or what they should do.
[2022-05-22 16:35] LABS: Immature Reticulocyte Fraction 25.5 % (3.0-15.9); Reticulocyte Hemoglobin Conten 20.3 pg (28.2-35.7); Reticulocyte Percent 1.69 % (0.7-4.3); Reticulocytes Absolute 0.06 B/L (32.2-175.7)
[2022-05-22 16:43] LABS: Bilirubin,Total 0.6 mg/dL (0.2-1.3); Lactate Dehydrogenase 284 U/L (120-246)
[2022-05-22 16:52] LABS: Transferrin 298 mg/dL (206-381)
[2022-05-22 17:01] LABS: Troponin I 0.066 ng/mL (0.000-0.034)
[2022-05-22 17:11] LABS: Iron 14 ug/dL (37-170)
[2022-05-22 17:21] LABS: Percent Iron Saturation 3 % (20-50)
[2022-05-22 17:51] LABS: Folic Acid 6.9 ng/mL (2.76->20)
[2022-05-22 19:44] LABS: Hematocrit 23.6 % (37.0-47.0); Hemoglobin 7.1 g/dL (12.0-15.0)
[2022-05-22] MEDS: FAMOTIDINE 20 MG/2 ML VIAL IV PUSH (20:05)
[2022-05-22] MEDS: SODIUM CHLORIDE 0.9% IV 250 ML 30 ML IV CONT (20:05)
[2022-05-22] MEDS: FUROSEMIDE INJ 40 MG/4 ML VIAL IV PUSH (20:07)
[2022-05-22] MEDS: METOPROLOL TARTRATE 25 MG TABLET PO (22:02)
[2022-05-23] VITALS (14 sets, daily range): BP systolic 132–193; BP diastolic 68–96; PULSE 54–65; RESP 18–20; TEMP 35.8–37; O2SAT 94–100; BMI 22.2
--- NOTE | 2022-05-23 | ECHO_ITS ---
Patient Info Name: Kell Avila Age: 81 years : 1940 Gender: Female Ht: 59 in Wt: 110 lbs BSA: 1.45 m2 HR: 55 bpm BP: 132 / 68 mmHg Heart Rhythm: Sinus Rhythm Technical Quality: Fair Exam Date: 05/23/2022 11:32 AM Exam Location: [facility] Pulmonary Patient Status: Inpatient Admit Date: 05/22/2022 Staff Ordering Physician: Janey Peter NP Welfare Director: Deborah Guy RDCS Attending Provider: Kathy Allison DO Referring Physician: Rome ROUSE; Exam Type: CA echo doppler color flow Study Info Indications - chf Complete two-dimensional, color flow and Doppler transthoracic echocardiogram is performed. Summary 1. Complete two-dimensional, color flow and Doppler transthoracic echocardiogram is performed. 2. Left ventricular chamber dimension is normal. 3. Left ventricular systolic function is normal, estimated at 65-70%. 4. There is moderately increased left ventricular wall thickness. 5. The left ventricular diastolic function is grade I diastolic dysfunction. 6. E/e' 53 is significantly elevated. 7. Left atrial chamber dimension is moderately enlarged. 8. There is mild aortic valve sclerosis. 9. There is mild aortic valve regurgitation. 10. The mitral valve has mildly calcified annulus. 11. There is mild to moderate mitral valve regurgitation. 12. No pulmonary hypertension, estimated pulmonary arterial systolic pressure is 22 mmHg. 13. There is trivial pericardial effusion. Left Ventricle E/e' 53 is significantly elevated. Left ventricular chamber dimension is normal. Left ventricular systolic function is normal, estimated at 65-70%. There is moderately increased left ventricular wall thickness. The left ventricular diastolic function is grade I diastolic dysfunction. Right Ventricle Right ventricular systolic function is normal and with normal TAPSE 1.8 cm. Right ventricular chamber dimension is normal. Left Atria Left atrial chamber dimension is moderately enlarged. Right Atria Right atrial chamber dimension is normal. Aortic Valve The aortic valve is trileaflet. There is mild aortic valve sclerosis. There is no aortic valve stenosis. There is mild aortic valve regurgitation. Pulmonic Valve There is no pulmonic regurgitation. Mitral Valve The mitral valve has mildly calcified annulus. There is no mitral valve stenosis. There is mild to moderate mitral valve regurgitation. Tricuspid Valve There is no tricuspid valve regurgitation. No pulmonary hypertension, estimated pulmonary arterial systolic pressure is 22 mmHg. Pericardium/Pleural There is trivial pericardial effusion. Inferior Vena Cava Normal inferior vena cava with >50% collapse upon inspiration consistent with normal right atrial pressure, 5 mmHg. Aorta The aortic root size at the sinus of Valsalva is normal. Left Ventricular Outflow Tract Name Value Normal LVOT 2D LVOT Diameter 1.9 cm LVOT Doppler LVOT Peak Gradient 5 mmHg LVOT Mean Gradient 2 mmHg LVOT VTI 21 cm LVOT VTI/AV VT
[2022-05-23 03:54] LABS: Basophils Absolute Auto 0.1 K/mm3 (0.0-0.1); Basophils Percent Auto 0.7 % (0.2-1.2); Eosinophils Absolute Auto 0.2 K/mm3 (0-0.3); Eosinophils Percent Auto 2.8 % (0-4.4); Hematocrit 30.7 % (37.0-47.0); Hemoglobin 9.2 g/dL (12.0-15.0); Immature Granulocyte Absolute 0.04 K/mm3 (0.00-0.031); Immature Granulocyte Percent A 0.6 % (0-0.5); Lymphocytes Absolute Auto 1.69 K/mm3 (0.9-3.2); Lymphocytes Percent Auto 23.9 % (18.3-44.2); Mean Corpuscular Volume 76.8 fl (80-100); Mean Platelet Volume 9.7 fl (7.4-10.4); Monocytes Absolute Auto 0.7 K/mm3 (0.1-0.6); Monocytes Percent Auto 9.6 % (2.6-8.5); Neutrophils Absolute Auto 4.4 K/mm3 (1.3-6.7); Neutrophils Percent Auto 62.4 % (45.5-73.1); Platelet Count Result 342 k/mm3 (150-375); Red Cell Distribution Width 19.5 % (11.5-14.5); White Blood Count 7.1 K/mm3 (4.5-10.0)
[2022-05-23 04:02] LABS: Lactic Acid Reflex 0.8 mmol/L (0.7-2.0)
[2022-05-23 04:03] LABS: Alanine Aminotransferase 19 U/L (6-35); Albumin Level 3.9 g/dL (3.5-5.1); Alkaline Phosphatase 94 U/L (38-126); Anion Gap 12 mmol/L (8-16); Aspartate Amino Transferase 25 U/L (14-36); Bilirubin,Total 0.8 mg/dL (0.2-1.3); Blood Urea Nitrogen 28 mg/dL (7-17); CRP 2.1 mg/dL (<1.0); Calcium 8.9 mg/dL (8.4-10.2); Carbon Dioxide 24 mmol/L (22-30); Chloride 98 mmol/L (98-107); Estimated Glomerular Filt Rate 29; Glucose 92 mg/dL (65-110); Potassium 3.8 mmol/L (3.4-5.0); Sodium 134 mmol/L (137-145)
[2022-05-23] MEDS: hydrALAZINE HCL 20 MG/ML VIAL 10 MG IV PUSH (05:31)
[2022-05-23] MEDS: METOPROLOL TARTRATE 50 MG TAB PO ×2 (08:34→20:46)
[2022-05-23] MEDS: FAMOTIDINE 20 MG/2 ML VIAL IV PUSH ×2 (08:34→20:46)
[2022-05-23] MEDS: FUROSEMIDE INJ 40 MG/4 ML VIAL IV PUSH (08:34)
--- NOTE | 2022-05-23 09:02 | PCPTNOTE ---
Attempted PT eval, pt off the floor for testing. Will follow
--- NOTE | 2022-05-23 11:03 | PCOTNOTE ---
Attempted to see pt. for occupational therapy evaluation. Pt. declined to participate at this time stating that she was too tired , was in pain , and needed to rest . Pt. agreeable to participation at later time. Nursing aware. Will follow.
--- NOTE | 2022-05-23 17:02 | PM.IMPN ---
Progress Note: A&P Assessment and Plan (1) Hypertension: Code(s): I10 - Essential (primary) hypertension Status: Chronic Assessment and Plan: -we decided to do p.r.n. hydralazine. Although her troponins are elevated she is not complaining of any chest pain. -it is understood that the patient is noncompliant at home with her medications -continue with metoprolol if her heart rate is greater than 50. (2) Anemia: Code(s): D64.9 - Anemia, unspecified Status: Chronic Assessment and Plan: Hemoglobin stable after transfusion, monitor, unsure etiology, fecal occult blood test pending Iron studies were low, will start replacement with ferrous sulfate (3) CHF (congestive heart failure): Code(s): I50.9 - Heart failure, unspecified Status: Chronic Assessment and Plan: Appears euvolemic, discontinue diuresis, echo pending (4) Elevated troponin: Code(s): R77.8 - Other specified abnormalities of plasma proteins Status: Acute Assessment and Plan: Suspect this is a troponin leak secondary to her hypertension, do not suspect acute cardiac etiology (5) MICHELLE (acute kidney injury): Code(s): N17.9 - Acute kidney failure, unspecified Status: Acute Assessment and Plan: Creatinine appears to be around 1.3 at baseline, 1.7 today, monitor (6) Adult failure to thrive: Code(s): R62.7 - Adult failure to thrive Status: Acute Assessment and Plan: Patient refusing all placement, will attempt to get home health care set up (7) Generalized weakness: Code(s): R53.1 - Weakness Status: Acute Assessment and Plan: Awaiting PT and OT evaluation Plan DVT prophylaxis with SCDs GI prophylaxis not indicated Code status DNR Subjective Date/time seen: 05/23/22 17:02 Interval history: Patient resting comfortably in bed, no complaints. She states she is eager to go home and is refusing any kind of placement. No overnight events noted. No chest pain or shortness of breath. No nausea, vomiting or diarrhea. No fevers or chills. Review of Systems Review of Systems: 12 point review of systems was assessed and was negative except as noted in the HPI Exam Narrative: General: No acute distress, alert and oriented per baseline HEENT: Atraumatic, normocephalic, mucous membranes moist CV: Regular rate and rhythm, S1, S2 Lungs: Clear to auscultation bilaterally, no rales or crackles noted, no wheezes, good air entry Abdomen: Soft, nontender, nondistended Extremities: Normal to inspection Skin: No rashes noted, no lesions or wounds seen Psych: Euthymic, normal affect Objective Data Vital Signs Vital Signs: Vital Signs - 24 hr 05/22/22 20:05 05/22/22 20:47 05/22/22 21:02 Temperature 97.8 F 97.3 F L Pulse Rate 70 70 63 Respiratory Rate 20 18 Blood Pressure 175/72 H 193/82 H Pulse Oximetry 99 97 Oxygen Delivery 05/22/22 20:00 05/22/22 20:00 05/22/22 22:02 Temperature Pulse Rate 63 60 Respiratory Rate Blood Pressure Pulse Oximetry Oxygen Delivery Room Air 05/22/22 22:02 05/22/22 20:00 05/22/22 23:02 Temperature 98.7 F 97.6 F 98.7 F Pulse Rate 60 68 60 Respiratory Rate 16 20 20 Blood Pressure 192/77 H 170/83 H 185/79 H Pulse Oximetry 98 96 98 Oxygen Delivery 05/22/22 23:21 05/23/22 00:02 05/23/22 03:39 Temperature 98.6 F Pulse Rate 64 60 62 Respiratory Rate 18 Blood Pressure 176/89 H Pulse Oximetry 94 Oxygen Delivery 05/23/22 06:36 05/23/22 06:00 05/23/22 08:34 Temperature 96.4 F L Pulse Rate 55 L 64 Respiratory Rate 20 Blood Pressure 132/68 193/77 H Pulse Oximetry 98 Oxygen Delivery 05/23/22 08:00 05/23/22 09:18 05/23/22 10:28 Temperature Pulse Rate 58 L Respiratory Rate Blood Pressure Pulse Oximetry 95 Oxygen Delivery Room Air Room Air 05/23/22 08:40 05/23/22 14:00 Temperature 97.1 F L Pulse Rate 54 L
[2022-05-24] VITALS (11 sets, daily range): BP systolic 147–173; BP diastolic 66–89; PULSE 51–67; RESP 12–22; TEMP 35.9–36.5; O2SAT 98–100
[2022-05-24 06:53] LABS: Hematocrit 34.1 % (37.0-47.0); Hemoglobin 9.9 g/dL (12.0-15.0); Mean Corpuscular Volume 79.3 fl (80-100); Mean Platelet Volume 9.3 fl (7.4-10.4); Platelet Count Result 309 k/mm3 (150-375); Red Cell Distribution Width 19.7 % (11.5-14.5); White Blood Count 9.2 K/mm3 (4.5-10.0)
[2022-05-24 07:04] LABS: Anion Gap 12 mmol/L (8-16); Blood Urea Nitrogen 26 mg/dL (7-17); Calcium 8.4 mg/dL (8.4-10.2); Carbon Dioxide 24 mmol/L (22-30); Chloride 95 mmol/L (98-107); Estimated Glomerular Filt Rate 27; Glucose 98 mg/dL (65-110); Potassium 3.7 mmol/L (3.4-5.0); Sodium 131 mmol/L (137-145)
[2022-05-24 09:33] LABS: Glucose Point of Care 149 mg/dl (65-105)
--- NOTE | 2022-05-24 09:45 | PC.NURSE ---
[employer] HELPER were walking pt to the bathroom and pt stated her legs felt too weak. CNAs returned pt to bed and she became slightly unresponsive. Rapid response was called, VS WNL. Pt then regained consciousness and was very weak. MD to room. Pt denies discomfort. New orders placed.
--- NOTE | 2022-05-24 10:19 | PM.IMPN ---
Progress Note: A&P Assessment and Plan (1) Hypertension: Code(s): I10 - Essential (primary) hypertension Status: Chronic Assessment and Plan: stable (2) Anemia: Code(s): D64.9 - Anemia, unspecified Status: Chronic Assessment and Plan: Hemoglobin stable after transfusion, monitor, unsure etiology, fecal occult blood test pending Iron studies were low, will start replacement with ferrous sulfate (3) CHF (congestive heart failure): Code(s): I50.9 - Heart failure, unspecified Status: Chronic Assessment and Plan: Echo showed an EF of 65-70% with grade 1 diastolic dysfunction and no pulmonary hypertension noted, trivial pericardial effusions seen, no significant valvular abnormalities Repeat chest x-ray pending, initial chest x-ray did show atelectasis versus pneumonia with small pleural effusions (4) Elevated troponin: Code(s): R77.8 - Other specified abnormalities of plasma proteins Status: Acute Assessment and Plan: Suspect this is a troponin leak secondary to her hypertension, do not suspect acute cardiac etiology (5) MICHELLE (acute kidney injury): Code(s): N17.9 - Acute kidney failure, unspecified Status: Acute Assessment and Plan: Gentle IV fluid hydration, monitor fluid status closely (6) Adult failure to thrive: Code(s): R62.7 - Adult failure to thrive Status: Acute Assessment and Plan: Patient refusing all placement, will attempt to get home health care set up Gentle IV fluid hydration (7) Generalized weakness: Code(s): R53.1 - Weakness Status: Acute Assessment and Plan: Awaiting PT and OT evaluation Plan DVT prophylaxis with SCDs GI prophylaxis not indicated Code status DNR Subjective Date/time seen: 05/24/22 10:19 Interval history: Patient did have a rapid response called this morning. Patient apparently seemed a little somnolent, had an odd muscle contraction/spasm while completely conscious. Patient was worried she had a stroke. Stat head CT was done and negative for any bleed or stroke. Symptoms completely resolved relatively quickly. Vital signs and mentation remained stable throughout the episode. No overnight events noted. No chest pain or shortness of breath. No nausea, vomiting or diarrhea. No fevers or chills. Review of Systems Review of Systems: 12 point review of systems was assessed and was negative except as noted in the HPI Exam Narrative: General: No acute distress, alert and oriented per baseline HEENT: Atraumatic, normocephalic, mucous membranes moist CV: Regular rate and rhythm, S1, S2 Lungs: Clear to auscultation bilaterally, no rales or crackles noted, no wheezes, good air entry Abdomen: Soft, nontender, nondistended Extremities: Normal to inspection Skin: No rashes noted, no lesions or wounds seen Psych: Euthymic, normal affect Neuro: Cranial nerves 2-12 grossly intact, strength +2/5 upper extremities bilaterally, 3/5 lower extremities bilaterally, no focal deficits Objective Data Vital Signs Vital Signs: Vital Signs - 24 hr 05/23/22 10:28 05/23/22 14:00 05/23/22 12:00 Temperature 97.1 F L Pulse Rate 54 L 61 Respiratory Rate 20 Blood Pressure 145/75 H Pulse Oximetry 100 Oxygen Delivery Room Air 05/23/22 16:00 05/23/22 20:46 05/23/22 20:59 Temperature 97.0 F L Pulse Rate 56 L 65 65 Respiratory Rate 18 Blood Pressure 140/96 H Pulse Oximetry 98 Oxygen Delivery 05/23/22 20:00 05/23/22 20:00 05/23/22 23:50 Temperature Pulse Rate 59 L 57 L Respiratory Rate Blood Pressure Pulse Oximetry Oxygen Delivery Room Air 05/24/22 03:06 05/24/22 03:28 05/24/22 06:00 Temperature 97 F L 97.7 F Pulse Rate 51 L 57 L 64 Respiratory Rate 15 22 H Blood Pressure 157/84 H 147/89 H Pulse Oximetry 98 98 Oxygen Delivery Intake/Output Intake/Output: Intake & Output 05/21/22
--- NOTE | 2022-05-24 10:46 | PCPTNOTE ---
The patient treatment was not able to be completed on 05/24 per RN. The pt had a rapid response called this morning and the RN stated to hold off on any treatments today. Will continue per PT plan of care.
[2022-05-24] MEDS: FERROUS SULFATE 324 MG TABLET PO (11:23)
[2022-05-24] MEDS: FAMOTIDINE 20 MG/2 ML VIAL IV PUSH (11:23)
[2022-05-24] MEDS: METOPROLOL TARTRATE 50 MG TAB PO (11:24)
[2022-05-24] MEDS: ACETAMINOPHEN 325 MG TABLET 650 MG PO (12:47)
--- NOTE | 2022-05-24 13:27 | PC.NURSE ---
RN called Vinita Cabrales (daughter) to give update on mother's condition and her day.
[2022-05-24] MEDS: SODIUM CHLORIDE 0.9% IV 1,000 ML 50 ML IV CONT (18:56)
[2022-05-25] VITALS: PULSE 52
[2022-05-25 04:00] VITALS: PULSE 55
[2022-05-25 06:00] VITALS: BP 170/81; PULSE 51; RESP 20; TEMP 36.1; O2SAT 95
[2022-05-25 09:12] VITALS: PULSE 59; PULSE 60
[2022-05-25] MEDS: FERROUS SULFATE 324 MG TABLET PO (09:12)
[2022-05-25] MEDS: METOPROLOL TARTRATE 50 MG TAB PO (09:12)
[2022-05-25] MEDS: FAMOTIDINE 20 MG/2 ML VIAL IV PUSH (09:13)
[2022-05-25 12:00] VITALS: PULSE 56
[2022-05-25 14:00] VITALS: BP 143/56; PULSE 54; RESP 16; TEMP 36.7; O2SAT 97
--- NOTE | 2022-05-25 17:13 | PM.DS ---
DS: Admitting Diagnosis Discharge Date May 25, 2022 Admitting Diagnosis Generalized weakness DS: Discharge Diagnosis Discharge Diagnosis (1) Hypertension: Code(s): I10 - Essential (primary) hypertension Status: Chronic Assessment and Plan: stable (2) Anemia: Code(s): D64.9 - Anemia, unspecified Status: Chronic Assessment and Plan: Hemoglobin stable after transfusion, monitor, unsure etiology, fecal occult blood test pending Iron studies were low, will start replacement with ferrous sulfate (3) CHF (congestive heart failure): Code(s): I50.9 - Heart failure, unspecified Status: Chronic Assessment and Plan: Echo showed an EF of 65-70% with grade 1 diastolic dysfunction and no pulmonary hypertension noted, trivial pericardial effusions seen, no significant valvular abnormalities Repeat chest x-ray pending, initial chest x-ray did show atelectasis versus pneumonia with small pleural effusions (4) Elevated troponin: Code(s): R77.8 - Other specified abnormalities of plasma proteins Status: Acute Assessment and Plan: Suspect this is a troponin leak secondary to her hypertension, do not suspect acute cardiac etiology (5) MICHELLE (acute kidney injury): Code(s): N17.9 - Acute kidney failure, unspecified Status: Acute Assessment and Plan: Gentle IV fluid hydration, monitor fluid status closely (6) Adult failure to thrive: Code(s): R62.7 - Adult failure to thrive Status: Acute Assessment and Plan: Patient refusing all placement, will attempt to get home health care set up Gentle IV fluid hydration (7) Generalized weakness: Code(s): R53.1 - Weakness Status: Acute Assessment and Plan: Awaiting PT and OT evaluation Plan DVT prophylaxis with SCDs GI prophylaxis not indicated Code status DNR DS: Summary Hospital Course Hospital Course: 81-year-old female patient who resides with her daughter and son-in-law.? The patient has hypertension and basically takes her medicine when she feels that she needs it.? She is noncompliant at times.? The patient had a head cold on and off for 1 and half weeks it was complaining head of generalized fatigue, poor appetite and tiredness.? Her daughter does not have time to manage her medication or take care of her at this point.? 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 She stated that she feels that she does need to go to rehab for short period of time.? The patient also tells me that she recently had her teeth pulled and that she has been having problems with her diet.? She does not eat any bread because it sticks to the roof of her mouth.? The patient stated that she is having a hard time finding things that she can each that will not stick to the roof of her mouth.? It sounds like the patient may need pureed diet.? Patient's H&H is 7.1 and 25.0 and had a repeated was 6.9 and 23.5.? IM working up and anemia profile and had her typed and cross-matched for 2 units of packed red blood cells.? Patient is chronically anemic.? Patient's MCV is 76.0.? We will check her for stool for occult blood.? Patient's creatinine is 1.7 which her baseline is around 1.3-1.4.? Her troponin is 0.066 and 0.063.? [place] [address].? Patient was given Pepcid in the emergency room as well as IV Lasix.? She was given hydralazine, Catapres, nitroglycerin ointment, and Lopressor for her elevated blood pressure.? Blood pressure was 205/96 and is now 172/62.? Echo was performed that showed an EF of 65-70% with grade 1 diastolic dysfunction and no pulmonary hypertension or significant valvular abnormalities. Hemoglobin remained stable after transfusion, this was thought to be secondary to iron deficiency anemia. Patient is not interested in further GI workup. She was started on oral iron supplementation. She was evaluated by PT and OT and deemed safe discharge for home
[2022-05-26 17:45] LABS: Albumin 3.6 g/dL (3.8-4.8); Alpha 1 Globulin 0.4 g/dL (0.2-0.3); Alpha 2 Globulin 0.7 g/dL (0.5-0.9); Beta 1 Globulin 0.5 g/dL (0.4-0.6); Gamma Globulin 1.1 g/dL (0.8-1.7); Protein, Total 6.6 g/dL (6.1-8.1)
[2022-05-27 06:35] LABS: Haptoglobin 113 mg/dL (43-212)
[2022-05-28 17:19] LABS: Soluble Transferrin Receptor 5.94 mg/L (0.76-1.76)
== END 2022-05-25 17:10 | disposition home or self-care (01) ==
LOC: ANHED 10:38 → ANH3MEDSUR 14:50 → ANHIMU 05-27 15:20 → ANH3MEDSUR 05-27 15:20
PROVIDERS: Internal Medicine; Nurse Practitioner; Admitting Provider Student in an Organized Health Care Education/Training Program; Emergency Provider Emergency Medicine; Visit Provider Student in an Organized Health Care Education/Training Program
DX: I11.9 Hypertensive heart disease without heart failure (principal); D64.9 Anemia, unspecified; I50.9 Heart failure, unspecified; R77.8 Other specified abnormalities of plasma proteins; N17.9 Acute kidney failure, unspecified; R62.7 Adult failure to thrive; R53.1 Weakness; K21.9 Gastro-esophageal reflux disease without esophagitis; E78.5 Hyperlipidemia, unspecified; J90 Pleural effusion, not elsewhere classified; I08.3 Combined rheumatic disorders of mitral, aortic and tricuspid valves; R94.31 Abnormal electrocardiogram [ECG] [EKG]; R90.82 White matter disease, unspecified; Z91.19 Patient's noncompliance with other medical treatment and regimen; Z68.22 Body mass index [BMI] 22.0-22.9, adult; Z79.899 Other long term (current) drug therapy
CPT/HCPCS: 36415; 36430; 51701; 51702; 70450; 71045; 71046; 74176; 80048; 80053; 81001; 82247; 82248; 82607; 82728; 82746; 82948; 83010; 83540; 83550; 83605; 83615; 83735; 83880; 84155; 84165; 84238; 84443; 84466; 84484; 85014; 85018; 85025; 85027; 85046; 85610; 86140; 86850; 86880; 86900; 86901; 86920; 93005; 93306; 96361; 96374; 96375; 96376; 97161; 97165; 97530; 99285; A9270; G0378; J0360; J1940; J7030; J7050; P9016

== ENCOUNTER 2024-04-22 09:42 | Inpatient (IN) | payer MEDICARE, SELFPAY ==
--- NOTE | ~2024-04-22 | XR_ITS ---
EXAMINATION: XR sm bowel follow through WS DATE: 04/23/2024 11:01 INDICATION: Small bowel obstruction TECHNIQUE: Tray Packer radiograph(s) of the abdomen was/were obtained. Oral contrast was administered, and sequential radiographs of the abdomen were obtained until oral contrast was noted to be in the proxi mal colon. Spot fluoroscopic images of the small bowel were obtained. Fluoroscopy exposure time was 0 .4 minutes. COMPARISON: None. FINDINGS: Tray Packer image demonstrates no dilated loops of small bowel to suggest obstruction. Cholecystectomy clip s in right upper quadrant. Cluster of dystrophic calcifications at the head of the pancreas suggestin g sequela of chronic pancreatitis. Transit time from the stomach to proximal colon was approximately 45 minutes. There is normal caliber and mucosal fold pattern throughout the small bowel. Terminal il eum is normal. There is an apple core lesion with peripheral mass resulting in central narrowing of t he lumen of the ascending colon which extends from approximate 5 cm which is concerning for primary c olon cancer.. IMPRESSION: 1. Apple core lesion in the ascending colon consistent with primary colon cancer. Otherwise normal all bowel follow-through with no obstruction. Reviewed, dictated and finalized at location A. IMPRESSION: 1. Apple core lesion in the ascending colon consistent with primary colon cance r. Otherwise normal small bowel follow-through with no obstruction.
--- NOTE | ~2024-04-22 | XR_ITS ---
XR chest 1V portable Ordering provider: Juan A De Santiago MD History: 83 years Female with . Feeling unwell. N/V/D . Comparison: May 24, 2022 FINDINGS: MEDIASTINUM: The cardiac silhouette is slightly enlarged. LUNGS: No infiltrates, effusions or pneumothorax. Prominent markings in the right lower lobe. OTHER: No free air under the diaphragm. IMPRESSION: No acute cardiopulmonary pathology. Reviewed, dictated and finalized at location A.
--- NOTE | ~2024-04-22 | XR_ITS ---
EXAMINATION: XR abdomen gastric tube insert DATE: 04/22/2024 12:03 INDICATION: Nasogastric tube placement. TECHNIQUE: An upright view of the abdomen was obtained. COMPARISON: CT abdomen and pelvis 04/22/2024 FINDINGS: There is a large hiatal hernia. The nasogastric tube tip is in the large hiatal hernia abov e the diaphragm. Surgical clips in the right upper quadrant are likely from cholecystectomy. The infe rior abdomen is excluded. IMPRESSION: 1. Nasogastric tube tip in the large hiatal hernia above the diaphragm. Reviewed, dictated and finalized at location A.
--- NOTE | ~2024-04-22 | CT_ITS ---
EXAMINATION: CT abdomen pelvis wo con DATE: 04/22/2024 10:56 INDICATION: Nausea and vomiting and diarrhea. TECHNIQUE: Computed tomography (CT) of the abdomen and pelvis was performed without intravenous contr ast. Automated exposure control and iterative reconstruction technique were employed. The dose-length product was 329.34 mGy-cm. COMPARISON: CT abdomen and pelvis 05/23/2022 FINDINGS: The visualized portions of the lung bases demonstrate mild atelectasis. No pleural effusion . Cardiomegaly is noted. There is a small pericardial effusion. There are coronary artery calcificati ons. There is a large sliding hiatal hernia. The liver and spleen are normal. There are changes of ch olecystectomy. There are calcifications in the pancreas, consistent with chronic pancreatitis. The ad renal glands are normal. There are cysts in the kidneys measuring up to 15 mm in the right. There is calcified atherosclerosis of the aorta and many of the other arteries. There is diverticulosis of the colon without evidence of diverticulitis. There is focal wall thickening of the ascending colon. The re is an infraumbilical ventral hernia containing small bowel. Small bowel is dilated proximal to the hernia. There is a 10 x 11 mm ileocolic lymph node. There is severe lower lumbar spondylosis. IMPRESSION: 1. Infraumbilical ventral hernia with small bowel obstruction. 2. Focal wall thickening of ascending colon, consistent with primary adenocarcinoma. 3. Mildly enlarged ileocolic lymph node suspicious for metastatic disease. 4. Large sliding hiatal hernia. Reviewed, dictated and finalized at location A. IMPRESSION: 1. Infraumbilical ventral hernia with small bowel obstruction. 2. Focal wall thickening of ascending colon, consistent with primary adenocarci noma. 3. Mildly enlarged ileocolic lymph node suspicious for metastatic disease. 4. Large sliding hiatal hernia.
[2024-04-22 09:35] VITALS: BP 159/91; PULSE 64; RESP 16; TEMP 36.6; O2SAT 97
--- NOTE | 2024-04-22 10:25 | ECG_ITS ---
Test Date: 2024-04-22 10:40:55 Measurements Intervals [place] Rate: 61 P: 13 VA: 152 QRS: -14 QRSD: 91 T: 69 QT: 436 QTc: 440 Interpretive Statements SINUS RHYTHM BORDERLINE LEFTWARD AXIS NONSPECIFIC T-WAVE ABNORMALITY ABNORMAL ECG No previous ECG available for comparison Electronically Signed On 04-22-2024 15:08:59 CDT by Palomo Santana M.D.
[2024-04-22] MEDS: SODIUM CHLORIDE 0.9% IV 2,000 ML 999 ML IV CONT (10:39)
[2024-04-22] MEDS: FAMOTIDINE 20 MG/2 ML VIAL IV PUSH ×2 (10:39→20:01)
[2024-04-22] MEDS: ONDANSETRON INJ 4 MG/2 ML VIAL IV PUSH (10:39)
--- NOTE | 2024-04-22 11:04 | ED.GENADULT ---
HPI - General Adult General Chief complaint: Nausea/Vomiting/Diarrhea Stated complaint: n/v/d Time Seen by Provider: 04/22/24 09:55 History of Present Illness HPI narrative: This is an 83-year-old female presenting to ED with a chief complaint of not feeling well. Patient says she has felt sick for 1 week. This includes chills, nausea vomiting and diarrhea. Today she said her symptoms got significantly worse. Now she is feeling very weak. She denies chest pain, shortness of breath or urinary symptoms. No recent antibiotics or travel. Related Data Home Medications Medication Instructions Recorded Confirmed metoprolol tartrate 50 mg tablet 50 mg PO BID 05/09/22 05/22/22 omeprazole 20 mg capsule,delayed 20 mg PO BID 05/09/22 05/22/22 release Allergies Allergy/AdvReac Type Severity Reaction Status Date / Time acetaminophen [From [place]] Allergy Nausea and Verified 04/22/24 10:35 Vomiting clarithromycin Allergy Rash Verified 04/22/24 10:35 codeine Allergy Nausea and Verified 04/22/24 10:35 Vomiting hydrocodone [From [place]] Allergy Nausea and Verified 04/22/24 10:35 Vomiting Iodine and Iodide Containing Allergy Rash Verified 04/22/24 10:35 Produc Latex, Natural Rubber Allergy Hives Verified 04/22/24 10:35 nifedipine Allergy Unknown Verified 04/22/24 10:35 oxycodone Allergy Hives Verified 04/22/24 10:35 prednisone Allergy Unknown Verified 04/22/24 10:35 propoxyphene Allergy Nausea Verified 04/22/24 10:35 Sulfa (Sulfonamide Allergy Rash Verified 04/22/24 10:35 Antibiotics) sulfanilamide Allergy Vomiting Verified 04/22/24 10:35 tetracycline Allergy Rash Verified 04/22/24 10:35 potassium bicarb Allergy Other Uncoded 04/22/24 10:35 [facility] Past Medical History Medical History (Updated 04/22/24 @ 12:18 by Juan A De Santiago MD) Anemia CHF (congestive heart failure) History of gastroesophageal reflux (GERD) History of hyperlipidemia Hypertension Surgical History Surgical History (Updated 04/22/24 @ 12:05 by Andrew Diggs DO) H/O cataract extraction H/O tooth extraction H/O total thyroidectomy H/O ventral hernia repair H/O: hysterectomy Hx of cholecystectomy S/P tonsillectomy Family History Family History Mother Cancer Sibling Leukemia Other Unknown family medical history Social History Social History Social History: She lives with [facility] and son in law. She had 3 children and now only has 1 child left. She is . She is a Retired nurse. She is a lifelong nonsmoker. She denies any alcohol marijuana or illicit drugs. Her daughter is a durable power criminal attorney for healthcare. Code status DNR Smoking status: Never smoker Second hand tobacco smoke exposure: No Alcohol intake: never Substance use: never Spiritual care concerns: No Exam Narrative: APPEARANCE: Frail, uncomfortable. Head: atraumatic. EYES: EOMI, NOSE: Atraumatic NECK: Trachea midline RESPIRATORY: No increased rate of breathing clear to auscultation CARDIOVASCULAR: RRR, no peripheral edema ABDOMINAL: Infraumbilical hernia. Non reducible Abdomen is soft and nontender. MUSCULOSKELETAl: No obvious deformities NEURO: Alert. Moving 4/4 extremities SKIN:: Warm, dry. Normal color PSYCHIATRIC: Normal affect Course Vital Signs Vital signs: Vital Signs Temperature 98 F 04/22/24 09:35 Pulse Rate 64 04/22/24 09:35 Respiratory Rate 16 04/22/24 09:35 Blood Pressure 159/91 H 04/22/24 09:35 Pulse Oximetry 97 04/22/24 09:35 Oxygen Delivery Room Air 04/22/24 09:35 Temperature 98 F 04/22/24 09:35 Pulse Rate 64 04/22/24 09:35 Respiratory Rate 16 04/22/24 09:35 Blood Pressure 159/91 H 04/22/24 09:35 Pulse Oximetry 97 04/22/24 09:35 Oxygen Delivery Room Air 04/22/24 09:35 Medical Decision Making MDM Narrative Me
[2024-04-22 11:27] LABS: Basophils Absolute Auto 0.1 K/mm3 (0.0-0.1); Basophils Percent Auto 0.5 % (0.2-1.2); Eosinophils Absolute Auto 0.2 K/mm3 (0-0.3); Eosinophils Percent Auto 1.5 % (0-4.4); Hematocrit 35.1 % (37.0-47.0); Hemoglobin 10.8 g/dL (12.0-15.0); Immature Granulocyte Absolute 0.05 K/mm3 (0.00-0.031); Immature Granulocyte Percent A 0.4 % (0-0.5); Lymphocytes Percent Auto 11.9 % (18.3-44.2); Mean Corpuscular HGB Conc 30.8 g/dl (32-36); Mean Corpuscular Hemoglobin 26.8 pg (26-34); Mean Corpuscular Volume 87.1 fl (80-100); Mean Platelet Volume 10.8 fl (7.4-10.4); Monocytes Absolute Auto 0.6 K/mm3 (0.1-0.6); Monocytes Percent Auto 5.5 % (2.6-8.5); Neutrophils Absolute Auto 9.4 K/mm3 (1.3-6.7); Neutrophils Percent Auto 80.2 % (45.5-73.1); Platelet Count Result 335 k/mm3 (150-375); Red Blood Count 4.03 M/mm3 (4.2-5.4); Red Cell Distribution Width 15.7 % (11.5-14.5); White Blood Count 11.7 K/mm3 (4.5-10.0)
[2024-04-22 11:39] LABS: Prothrombin Time 13.8 Seconds (11.1-14.7)
[2024-04-22 11:40] LABS: Alanine Aminotransferase 12 U/L (6-35); Albumin Level 3.8 g/dL (3.5-5.1); Alkaline Phosphatase 92 U/L (38-126); Anion Gap 8 mmol/L (4-12); Aspartate Amino Transferase 24 U/L (14-36); Bilirubin,Total 0.5 mg/dL (0.2-1.3); Blood Urea Nitrogen 22 mg/dL (7-17); Calcium 8.8 mg/dL (8.4-10.2); Carbon Dioxide 25 mmol/L (22-30); Chloride 100 mmol/L (98-107); Estimated CRCL calculation 18 ml/min; Estimated Glomerular Filt Rate 31; Glucose 119 mg/dL (65-110); Lipase 55 U/L (23-300); Magnesium 1.9 mg/dL (1.6-2.3); Potassium 4.5 mmol/L (3.4-5.0); Sodium 133 mmol/L (137-145)
[2024-04-22 11:41] LABS: Lactic Acid Reflex 1.1 mmol/L (0.7-2.0); Partial Thromboplastin Time 30.9 Seconds (22.3-36.8)
--- NOTE | 2024-04-22 12:00 | PM.CNGS ---
Assessment and Plan Assessment and plan (1) Recurrent incisional hernia with incarceration: Code(s): K43.0 - Incisional hernia with obstruction, without gangrene Status: Acute Assessment and Plan: I have reviewed the CT and discussed the findings with the patient. I was able to reduce the hernia with gentle manipulation. NG tube placement has been ordered by the ED physician and she will be admitted to the hospitalist. I have discussed that repeat incarceration could happen with this hernia and discussed that there are surgical treatment options. Patient does not want to undergo surgery given her age and comorbidities. She will need the ascending colon mass worked up further that was seen on the CT. Will plan for CEA level with tomorrow morning's labs. If this is elevated and indicative of malignancy in the ascending colon, will have further discussions with her about treatment verses comfort measures. Will also plan for small-bowel follow-through to be obtained tomorrow to ensure that small-bowel obstruction is resolving with hernia now reduced. (2) Small bowel obstruction: Code(s): K56.609 - Unspecified intestinal obstruction, unspecified as to partial versus complete obstruction Status: Acute (3) Mass of colon: Code(s): K63.89 - Other specified diseases of intestine Status: Acute (4) Hypertension: Code(s): I10 - Essential (primary) hypertension Status: Chronic (5) CHF (congestive heart failure): Code(s): I50.9 - Heart failure, unspecified Status: Chronic History of Present Illness Consult details Consult date: 04/22/24 Reason for consult: other (Incarcerated incisional hernia) Requesting physician: Juan A De Santiago MD Narrative: This is an 83-year-old woman who I am asked to see for an incarcerated incisional hernia. The patient states she has been having problems for weeks, but has had worsening pain and nausea and vomiting for the past several days. She states that her bowels are not moving normally. She has this history of an incisional hernia and previously it has been reducible. She has elected not to have surgery on it in the past. She denies any fevers or chills. Patient has not had a recent colonoscopy. She denies any hematochezia or melena. She has had a history of hysterectomy and incisional hernia repair with mesh in the past. She states that she does not want to have surgery at her age and with her other medical problems. Review of Systems Review of Systems: All systems reviewed & are unremarkable except as noted in HPI and below Constitutional: Constitutional: Reports as per HPI Eyes: Eyes: Denies change in vision ENT: Denies hearing loss, Denies neck pain and Denies sore throat Cardiovascular: Cardiovascular: Denies chest pain and Denies dyspnea Respiratory: Respiratory: Denies cough, Denies dyspnea and Denies wheezing Gastrointestinal: Gastrointestinal: Reports as per HPI Genitourinary: Genitourinary: Denies hematuria and Denies dysuria Musculoskeletal: Musculoskeletal: Denies arthralgias, Denies joint swelling and Denies neck pain Allergic/Immunologic: Allergic/Immunologic: Denies wheezing [facility] Past Medical History Medical History (Updated 04/22/24 @ 12:09 by Andrew Diggs DO) Anemia CHF (congestive heart failure) History of gastroesophageal reflux (GERD) History of hyperlipidemia Hypertension Surgical History Surgical History (Updated 04/22/24 @ 12:05 by Andrew Diggs DO) H/O cataract extraction H/O tooth extraction H/O total thyroidectomy H/O ventral hernia repair H/O: hysterectomy Hx of cholecystectomy S/P tonsillectomy Family History Family History Mother Cancer Sibling Leukemia Other Unknown family medical history Social History Social History Social History: She lives with
[2024-04-22 12:05] LABS: Add Urine Microscopic? YES; Appearance Urine Clear (Clear); Bacteria Urine None Seen /hpf; Bilirubin Urine Negative (Negative); Blood Urine Negative (Negative); Color Urine Yellow (Yellow); Glucose Urine UA Negative (Negative); Ketones Urine Negative (Negative); Leukocyte Esterase Ur Trace LEU/UL (Negative); Need Manual Microscopic Reviewed; Nitrate Urine Negative (Negative); Protein Urine 1+ mg/dL (Negative); RBC Urine 0-2 /hpf (0-2); Specific Grav Ur 1.016 (1.001-1.035); Squamous Epithelial Cell Urine None Seen /hpf (Few); Urobilinogen Urine 0.2 mg/dL (<2.0); WBC Urine 0-5 /hpf (0-3); pH Urine 5.5 (5.0-9.0)
[2024-04-22 12:31] VITALS: BP 188/104; PULSE 84; RESP 16; O2SAT 97
[2024-04-22 12:33] LABS: Influenza A QL RT-PCR Negative (Negative); Influenza B QL RT-PCR Negative (Negative); RSV RNA, RT-PCR Negative (Negative); SARS-CoV-2 RNA PCR Negative (Negative)
--- NOTE | 2024-04-22 13:14 | PC.NURSE ---
Patient removed her NG tube prior to being taken to her room.
--- NOTE | 2024-04-22 13:25 | PM.IMHP ---
H&P: HPI History of Present Illness Date/Time: 04/22/24 13:25 Chief Complaint: Nausea, Vomiting, Diarrhea Narrative: 83 y/o F presents here with nausea, vomiting, diarrhea with PMH of anemia, CHF, GERD, hyperlipidemia, and hypertension. The patient presents here from home for further evaluation of nausea, vomiting, diarrhea that has been ongoing for the past week. Patient elected to seek care today due to developing generalized weakness today. Accompanied by dry mouth. Denies fever, chills, abdominal pain, hematochezia, or melena. No prior history of bowel obstruction. Last colonoscopy was 10+ years ago, patient reports there were no abnormalities found. She reports FH of cancer - mother (unsure what type) and daughter had ovarian cancer. 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 She does not follow with an oncologist at present. She reports no recent unintentional weight loss, night sweats. Does have easy bruising. Initial VS at presentation: 98? F, HR 64, RR 16, 159/91, and 97% on RA. ED workup showed: WBC 11.7, hemoglobin 10.8 (previously 9.9 on 05/24/2022), normal coags, sodium 133, creatinine 1.6 and GFR 31 (previously 1.8 and GFR 27 in 2021), normal LFTs, UA showed 1+ protein and trace leuks. Viral PCR negative. CXR showed no acute cardiopulmonary pathology. CT of the abdomen/pelvis showed an infraumbilical ventral hernia with small-bowel obstruction, focal wall thickening of the ascending colon, mildly enlarged ileocolic lymph nodes, and a large sliding hiatal hernia. Review of Systems Review of Systems: All systems reviewed & are unremarkable except as noted in HPI and below PMFSH Past Medical History Medical History Anemia CHF (congestive heart failure) History of gastroesophageal reflux (GERD) History of hyperlipidemia Hypertension Surgical History Surgical History H/O cataract extraction H/O tooth extraction H/O total thyroidectomy H/O ventral hernia repair H/O: hysterectomy Hx of cholecystectomy S/P tonsillectomy Family History Family History Mother Cancer Sibling Leukemia Other Unknown family medical history Social History Social History Social History: She lives with [facility] and son in law. She had 3 children and now only has 1 child left. She is . She is a Retired nurse. She is a lifelong nonsmoker. She denies any alcohol marijuana or illicit drugs. Her daughter is a durable power senior product analyst for healthcare. Code status DNR Smoking status: Never smoker Second hand tobacco smoke exposure: No Alcohol intake: never Substance use: never Do You Feel Safe in your Home?: Yes Lack of Transportation: No Lack of Food: Never True Current Housing: I Have Housing Concerned About Future Housing: No Difficulty Paying Gas/Electric Bills: No Difficulty Paying for Meds: No Currently Unemployed: No Education: High School Diploma/GED Difficulty w/ Childcare or Family Care: No Spiritual care concerns: No Meds Home Medications and Allergies Home Medications Medication Instructions Recorded Confirmed Type metoprolol tartrate 50 mg tablet 50 mg PO BID 05/09/22 04/22/24 History Allergies Allergy/AdvReac Type Severity Reaction Status Date / Time acetaminophen [From [place]] Allergy Nausea and Verified 04/22/24 13:56 Vomiting clarithromycin Allergy Rash Verified 04/22/24 13:56 codeine Allergy Nausea and Verified 04/22/24 13:56 Vomiting hydrocodone [From [place]] Allergy Nausea and Verified 04/22/24 13:56 Vomiting Iodine and Iodide Containing Allergy Rash Verified 04/22/24 13:56 Produc Latex, Natural Rubber Allergy Hives Verified 04/22/24 13:56 nife
[2024-04-22 13:30] VITALS: BP 140/66; PULSE 80; RESP 20; TEMP 36.3; O2SAT 100
--- NOTE | 2024-04-22 13:30 | ADMGEN ---
This patient, Kell Avila, was admitted to 2 Medical Room 240-01. Patient/family oriented to hospital policies and general routines including ID bracelet, bed and alarms, visiting hours, pain management, procedures, bathroom and other care routines, personal items, smoking policy, room service/diet, and visiting hours. Information on how to activate the Rapid Response Team has been discussed. Patient/Family are encouraged to report perceived risks to care and to ask questions if they do not understand what they are told or what they should do.
[2024-04-22 13:55] VITALS: BMI 22.2
[2024-04-22 15:16] VITALS: BMI 22.2
[2024-04-22] MEDS: LACTATED RINGERS 1,000 ML 100 ML IV CONT (16:33)
[2024-04-22 20:01] VITALS: PULSE 75
[2024-04-22] MEDS: METOPROLOL TARTRATE 50 MG TAB PO (20:01)
[2024-04-22] MEDS: DICYCLOMINE HCL 10 MG CAPSULE 20 MG PO (20:40)
[2024-04-22 22:00] VITALS: BP 147/76; PULSE 75; RESP 18; TEMP 36.9; O2SAT 98
[2024-04-23] MEDS: LACTATED RINGERS 1,000 ML 100 ML IV CONT ×2 (03:58→17:27)
[2024-04-23 05:01] LABS: Basophils Absolute Auto 0.1 K/mm3 (0.0-0.1); Basophils Percent Auto 0.7 % (0.2-1.2); Eosinophils Absolute Auto 0.4 K/mm3 (0-0.3); Eosinophils Percent Auto 3.8 % (0-4.4); Hematocrit 29.1 % (37.0-47.0); Hemoglobin 8.9 g/dL (12.0-15.0); Immature Granulocyte Absolute 0.03 K/mm3 (0.00-0.031); Immature Granulocyte Percent A 0.3 % (0-0.5); Lymphocytes Absolute Auto 1.82 K/mm3 (0.9-3.2); Lymphocytes Percent Auto 19.9 % (18.3-44.2); Mean Corpuscular HGB Conc 30.6 g/dl (32-36); Mean Corpuscular Volume 88.2 fl (80-100); Mean Platelet Volume 10.5 fl (7.4-10.4); Monocytes Absolute Auto 0.8 K/mm3 (0.1-0.6); Monocytes Percent Auto 8.3 % (2.6-8.5); Neutrophils Absolute Auto 6.1 K/mm3 (1.3-6.7); Platelet Count Result 297 k/mm3 (150-375); Red Cell Distribution Width 15.3 % (11.5-14.5); White Blood Count 9.1 K/mm3 (4.5-10.0)
[2024-04-23 05:16] LABS: Alanine Aminotransferase 10 U/L (6-35); Albumin Level 2.8 g/dL (3.5-5.1); Alkaline Phosphatase 67 U/L (38-126); Anion Gap 6 mmol/L (4-12); Aspartate Amino Transferase 21 U/L (14-36); Bilirubin,Total 0.5 mg/dL (0.2-1.3); Blood Urea Nitrogen 19 mg/dL (7-17); Carbon Dioxide 21 mmol/L (22-30); Chloride 106 mmol/L (98-107); Estimated Glomerular Filt Rate 33; Glucose 82 mg/dL (65-110); Potassium 4.4 mmol/L (3.4-5.0); Sodium 133 mmol/L (137-145)
[2024-04-23 05:43] LABS: Carcinoembryonic Antigen 11.9 ng/mL (0.0-3.0)
[2024-04-23 06:00] VITALS: BP 139/70; PULSE 57; RESP 18; TEMP 36.8; O2SAT 97
--- NOTE | 2024-04-23 07:38 | PM.IMPN ---
Progress Note: A&P Assessment and Plan (1) SBO (small bowel obstruction): Code(s): K56.609 - Unspecified intestinal obstruction, unspecified as to partial versus complete obstruction Status: Acute Assessment and Plan: - CT abd/pelvis: 1. Infraumbilical ventral hernia with small bowel obstruction. 2. Focal wall thickening of ascending colon, consistent with primary adenocarcinoma. 3. Mildly enlarged ileocolic lymph node suspicious for metastatic disease. 4. Large sliding hiatal hernia. - General Surgery consulted, Caterina GANN. Provided the following recs: Hernia able to be reduced at bedside with gentle manipulation NG tube placed Shared decision making discussion occurred, patient would not like to undergo surgery though repeat incarceration could happen with this hernia. Small-bowel follow-through tomorrow to assess if SBO is resolving with hernia now being reduced - NG tube placed in ED, XR for confirmation. Has since been discontinued. - IV fluids 04/23- surgery consulted. small bowel xray ordered for this am (2) Mass of colon: Code(s): K63.89 - Other specified diseases of intestine Status: Acute Assessment and Plan: - see CT report above - last colonoscopy 10+ years ago, benign per patient. no record on file. - adding CEA level to AM labs per [facility] rec - further POC dependent on result if level indicative of malignancy in the ascending colon (treatment versus comfort measures). suspect patient will elect to move forward with comfort measures for which she will need care coordination consult. 04/23- Elevated CEA and apple core lesion seen on SBFT. Likely adenocarcinoma.pt doesnot want to pursue any further treatments/consults. interested in comfort care (3) Recurrent incisional hernia with incarceration: Code(s): K43.0 - Incisional hernia with obstruction, without gangrene Status: Acute Assessment and Plan: - see CT report above - General Surgery consulted, Caterina GANN. Provider was able to reduce hernia at bedside. After shared decision making, patient elected to forego surgical management. Plan for small-bowel follow-through tomorrow. - serial abdominal exams (4) Anemia: Qualifiers: Anemia type: unspecified type Qualified Code(s): D64.9 - Anemia, unspecified Code(s): D64.9 - Anemia, unspecified Status: Chronic Assessment and Plan: - Hgb 10.8, previously 9.9 on 05/24/2022 - MCV 87.1, MCHC 30.8, RDW 15.7 - monitor (5) Hypertension: Qualifiers: Hypertension type: primary hypertension Qualified Code(s): I10 - Essential (primary) hypertension Code(s): I10 - Essential (primary) hypertension Status: Chronic Assessment and Plan: - chronic, currently 139/70 - continue home medications: Metoprolol 50 mg b.i.d. - monitor Plan Patient here with nausea, vomiting, diarrhea. CT of the abdomen/pelvis showed a ventral hernia with SBO, focal wall thickening of the ascending colon, and mild enlarged ileocolic lymph nodes all suspicious for primary a dental carcinoma with metastatic disease. General surgery was consulted and able to reduce hernia at bedside. Patient elected to move forward with medical comanagement and forego surgery for hernia repair. CEA level added to a.m. labs. If suspicious for malignancy, will develop further plan of care with patient. During discussion at bedside, patient discussed her age and likely will request comfort measures for which she will need care coordination consult. Continue IV fluids in interim. Diet: NPO/bowel rest GI Prophylaxis: Famotidine IVP DVT Prophylaxis: SCDs Lines: Peripheral Code Status: DNR Time Spent With Patient Time with patient: Greater than 35 minutes Subjective Date/time seen: 04/23/24 07:38 Interval history: Narrative retrieved from H/P: 83 y/o F presents here with nausea, vomiting, diarrhea with PMH of anemia
[2024-04-23 08:20] VITALS: PULSE 66
[2024-04-23] MEDS: METOPROLOL TARTRATE 50 MG TAB PO ×2 (08:20→20:46)
[2024-04-23] MEDS: DICYCLOMINE HCL 10 MG CAPSULE 20 MG PO (08:21)
[2024-04-23] MEDS: FAMOTIDINE 20 MG/2 ML VIAL IV PUSH ×2 (08:21→20:47)
--- NOTE | 2024-04-23 11:41 | PM.PNGS ---
Progress Note: A&P Assessment and Plan (1) Recurrent incisional hernia with incarceration: Code(s): K43.0 - Incisional hernia with obstruction, without gangrene Status: Acute Assessment and Plan: Hernia now reducible and not causing obstruction (2) SBO (small bowel obstruction): Code(s): K56.609 - Unspecified intestinal obstruction, unspecified as to partial versus complete obstruction Status: Acute Assessment and Plan: Resolved with reduction of incarcerated hernia (3) Mass of colon: Code(s): K63.89 - Other specified diseases of intestine Status: Acute Assessment and Plan: Elevated CEA and apple core lesion seen on SBFT. Likely adenocarcinoma. (4) CHF (congestive heart failure): Code(s): I50.9 - Heart failure, unspecified Status: Chronic Plan Bowel obstruction resolved. Will start clear liquids. Patient does not want surgery. Discussed with her that she will likely from either a recurrent incarcerated hernia or advanced malignancy. Will need to consider comfort measures or hospice given patient's wishes. Subjective Subjective Date/Time Seen: 04/23/24 11:41 Interval history: Bowels moving. No pain at hernia. A little nauseated at times but not feeling bloated. Exam GI: Inspection: non-distended GI Palp: Yes Soft to palpation, No Guarding due to palpation present (GI), Yes Hernia present incisional 3-10 cm (soft, reducible, nontender) and No Rebound tenderness present Percussion: Yes normal to percussion Auscultation: normal bowel sounds Objective Data Vital Signs Vital Signs: Vital Signs - 24 hr 04/22/24 12:31 04/22/24 13:30 04/22/24 20:01 Temperature 36.3 C L Pulse Rate 84 80 75 Respiratory Rate 16 20 Blood Pressure 188/104 H 140/66 Pulse Oximetry 97 100 Oxygen Delivery 04/22/24 22:00 04/23/24 06:00 04/23/24 08:20 Temperature 36.9 C 36.8 C Pulse Rate 75 57 L 66 Respiratory Rate 18 18 Blood Pressure 147/76 H 139/70 Pulse Oximetry 98 97 Oxygen Delivery 04/23/24 08:10 Temperature Pulse Rate Respiratory Rate Blood Pressure Pulse Oximetry Oxygen Delivery Room Air Intake/Output Intake/Output: Intake & Output 04/20/24 04/21/24 04/22/24 04/23/24 23:59 23:59 23:59 23:59 Intake Total 1000 Output Total 250 200 Balance -250 800 Meds/Results Medications: Active Medications Generic Name Dose Route Start Last Admin Trade Name Freq PRN Reason Stop Dose Admin Dicyclomine HCl 20 mg 04/22/24 15:26 04/23/24 08:21 Dicyclomine Hcl 10 Mg Capsule PO 20 mg QID PRN Administration Abdominal Cramping Famotidine 20 mg 04/22/24 21:00 04/23/24 08:21 Famotidine 20 Mg/2 Ml Vial IV PUSH 20 mg Q12HR JODY Administration Lactated Ringer's 1,000 mls @ 100 mls/hr 04/22/24 15:15 04/23/24 03:58 Lr - Lactated Ringers Iv IV CONT 100 mls/hr .Q10H JODY Administration Ibuprofen 400 mg 04/22/24 15:26 Ibuprofen 400 Mg Tablet PO Q6H PRN Pain Rated 1-3 Metoprolol Tartrate 50 mg 04/22/24 21:00 04/23/24 08:20 Metoprolol Tartrate 50 Mg Tab PO 50 mg Q12HR JODY Administration Radiology Results: ITS Impressions Chest X-Ray 04/22/24 10:59 IMPRESSION: No acute cardiopulmonary pathology. Abdomen/Pelvis CT 04/22/24 11:06 IMPRESSION: 1. Infraumbilical ventral hernia with small bowel obstruction. 2. Focal wall thickening of ascending colon, consistent with primary adenocarcinoma. 3. Mildly enlarged ileocolic lymph node suspicious for metastatic disease. 4. Large sliding hiatal hernia. Abdomen X-Ray 04/22/24 12:14 IMPRESSION: 1. Nasogastric tube tip in the large hiatal hernia above the diaphragm. Small Bowel X-Ray 04/23/24 11:21 IMPRESSION: 1. Apple core lesion in the ascending colon consistent with primary colon cancer. Otherwise normal small bowel follow-through with no obstruction. Labs Labs: Labora
[2024-04-23] MEDS: KETOROLAC 15 MG/ML VIAL (*BKC) IV PUSH (13:34)
[2024-04-23 14:00] VITALS: BP 180/110; PULSE 57; RESP 16; TEMP 36.7; O2SAT 100
[2024-04-23] MEDS: hydrALAZINE HCL 20 MG/ML VIAL 10 MG IV PUSH (15:50)
[2024-04-23 16:00] VITALS: BP 122/80
[2024-04-23 20:46] VITALS: PULSE 56
[2024-04-23 21:57] VITALS: BP 103/54; PULSE 62; RESP 18; TEMP 36.3; O2SAT 99
[2024-04-24] VITALS (8 sets, daily range): BP systolic 135–180; BP diastolic 60–110; PULSE 53–113; RESP 18–24; TEMP 36.3–36.6; O2SAT 96–100
[2024-04-24] MEDS: LACTATED RINGERS 1,000 ML 100 ML IV CONT (05:15)
--- NOTE | 2024-04-24 07:15 | PM.IMPN ---
Progress Note: A&P Assessment and Plan (1) SBO (small bowel obstruction): Code(s): K56.609 - Unspecified intestinal obstruction, unspecified as to partial versus complete obstruction Status: Acute Assessment and Plan: - CT abd/pelvis: 1. Infraumbilical ventral hernia with small bowel obstruction. 2. Focal wall thickening of ascending colon, consistent with primary adenocarcinoma. 3. Mildly enlarged ileocolic lymph node suspicious for metastatic disease. 4. Large sliding hiatal hernia. - General Surgery consulted, Caterina GANN. Provided the following recs: Hernia able to be reduced at bedside with gentle manipulation NG tube placed Shared decision making discussion occurred, patient would not like to undergo surgery though repeat incarceration could happen with this hernia. Small-bowel follow-through tomorrow to assess if SBO is resolving with hernia now being reduced - NG tube placed in ED, XR for confirmation. Has since been discontinued. - IV fluids 04/23- surgery consulted. small bowel xray ordered for this am IMPRESSION: 1. Apple core lesion in the ascending colon consistent with primary colon cancer. Otherwise normal small bowel follow-through with no obstruction. (2) Mass of colon: Code(s): K63.89 - Other specified diseases of intestine Status: Acute Assessment and Plan: - see CT report above - last colonoscopy 10+ years ago, benign per patient. no record on file. - adding CEA level to AM labs per [facility] rec - further POC dependent on result if level indicative of malignancy in the ascending colon (treatment versus comfort measures). suspect patient will elect to move forward with comfort measures for which she will need care coordination consult. 04/23- Elevated CEA and apple core lesion seen on SBFT. Likely adenocarcinoma.pt doesnot want to pursue any further treatments/consults. interested in comfort care 04/24 had a discussion with her about further care. She thinks she understands her situation but thinks she wants to talk to a surgeon about options for surgery. She is leaning toward no chemo/radiation/oncology consult but wants to discuss options with surgeon for her hernia. Nurse is aware and surgery will be notified that pt wants to hear options (3) Recurrent incisional hernia with incarceration: Code(s): K43.0 - Incisional hernia with obstruction, without gangrene Status: Acute Assessment and Plan: - see CT report above - General Surgery consulted, Caterina GANN. Provider was able to reduce hernia at bedside. After shared decision making, patient elected to forego surgical management. Plan for small-bowel follow-through tomorrow. - serial abdominal exams see above (4) Anemia: Qualifiers: Anemia type: unspecified type Qualified Code(s): D64.9 - Anemia, unspecified Code(s): D64.9 - Anemia, unspecified Status: Chronic Assessment and Plan: - Hgb 10.8, previously 9.9 on 05/24/2022 - MCV 87.1, MCHC 30.8, RDW 15.7 - monitor (5) Hypertension: Qualifiers: Hypertension type: primary hypertension Qualified Code(s): I10 - Essential (primary) hypertension Code(s): I10 - Essential (primary) hypertension Status: Chronic Assessment and Plan: - chronic, currently 139/70 - continue home medications: Metoprolol 50 mg b.i.d. - monitor Plan Patient here with nausea, vomiting, diarrhea. CT of the abdomen/pelvis showed a ventral hernia with SBO, focal wall thickening of the ascending colon, and mild enlarged ileocolic lymph nodes all suspicious for primary a dental carcinoma with metastatic disease. General surgery was consulted and able to reduce hernia at bedside. Patient elected to move forward with medical comanagement and forego surgery for hernia repair. CEA level added to a.m. labs. If suspicious for malignancy, will develop further plan of care with patient. During discussion
[2024-04-24] MEDS: FAMOTIDINE 20 MG/2 ML VIAL IV PUSH ×2 (08:27→21:11)
[2024-04-24] MEDS: METOPROLOL TARTRATE 50 MG TAB PO ×2 (08:27→21:10)
[2024-04-24] MEDS: LACTATED RINGERS 1,000 ML 75 ML IV CONT (17:00)
[2024-04-25] VITALS (9 sets, daily range): BP systolic 155–210; BP diastolic 70–91; PULSE 55–81; RESP 16–18; TEMP 36.4–37; O2SAT 95–97
[2024-04-25] MEDS: LACTATED RINGERS 1,000 ML 75 ML IV CONT ×2 (06:14→20:46)
--- NOTE | 2024-04-25 07:11 | PM.IMPN ---
Progress Note: A&P Assessment and Plan (1) SBO (small bowel obstruction): Code(s): K56.609 - Unspecified intestinal obstruction, unspecified as to partial versus complete obstruction Status: Acute Assessment and Plan: - CT abd/pelvis: 1. Infraumbilical ventral hernia with small bowel obstruction. 2. Focal wall thickening of ascending colon, consistent with primary adenocarcinoma. 3. Mildly enlarged ileocolic lymph node suspicious for metastatic disease. 4. Large sliding hiatal hernia. - General Surgery consulted, Caterina GANN. Provided the following recs: Hernia able to be reduced at bedside with gentle manipulation NG tube placed Shared decision making discussion occurred, patient would not like to undergo surgery though repeat incarceration could happen with this hernia. Small-bowel follow-through tomorrow to assess if SBO is resolving with hernia now being reduced - NG tube placed in ED, XR for confirmation. Has since been discontinued. - IV fluids 04/23- surgery consulted. small bowel xray ordered for this am IMPRESSION: 1. Apple core lesion in the ascending colon consistent with primary colon cancer. Otherwise normal small bowel follow-through with no obstruction. - 04/25- waiting to discuss options for surgery with surgeon (2) Mass of colon: Code(s): K63.89 - Other specified diseases of intestine Status: Acute Assessment and Plan: - see CT report above - last colonoscopy 10+ years ago, benign per patient. no record on file. - adding CEA level to AM labs per [facility] rec - further POC dependent on result if level indicative of malignancy in the ascending colon (treatment versus comfort measures). suspect patient will elect to move forward with comfort measures for which she will need care coordination consult. 04/23- Elevated CEA and apple core lesion seen on SBFT. Likely adenocarcinoma.pt doesnot want to pursue any further treatments/consults. interested in comfort care 04/24 had a discussion with her about further care. She thinks she understands her situation but thinks she wants to talk to a surgeon about options for surgery. She is leaning toward no chemo/radiation/oncology consult but wants to discuss options with surgeon for her hernia. Nurse is aware and surgery will be notified that pt wants to hear options (3) Recurrent incisional hernia with incarceration: Code(s): K43.0 - Incisional hernia with obstruction, without gangrene Status: Acute Assessment and Plan: - see CT report above - General Surgery consulted, Caterina GANN. Provider was able to reduce hernia at bedside. After shared decision making, patient elected to forego surgical management. Plan for small-bowel follow-through tomorrow. - serial abdominal exams see above (4) Anemia: Qualifiers: Anemia type: unspecified type Qualified Code(s): D64.9 - Anemia, unspecified Code(s): D64.9 - Anemia, unspecified Status: Chronic Assessment and Plan: - Hgb 10.8, previously 9.9 on 05/24/2022 - MCV 87.1, MCHC 30.8, RDW 15.7 - monitor - reports had EDWARDO in the past 04/25- hg 8.5- no c/o bleeding- monitor for now add iron studies (5) Hypertension: Qualifiers: Hypertension type: primary hypertension Qualified Code(s): I10 - Essential (primary) hypertension Code(s): I10 - Essential (primary) hypertension Status: Chronic Assessment and Plan: - chronic, currently 139/70 - continue home medications: Metoprolol 50 mg b.i.d. - monitor Plan Patient here with nausea, vomiting, diarrhea. CT of the abdomen/pelvis showed a ventral hernia with SBO, focal wall thickening of the ascending colon, and mild enlarged ileocolic lymph nodes all suspicious for primary a dental carcinoma with metastatic disease. General surgery was consulted and able to reduce hernia at bedside. Patient elected to move forward with medical comanagement and forego surg
[2024-04-25] MEDS: METOPROLOL TARTRATE 50 MG TAB PO ×2 (08:12→20:46)
[2024-04-25] MEDS: FAMOTIDINE 20 MG/2 ML VIAL IV PUSH ×2 (08:14→20:46)
--- NOTE | 2024-04-25 10:58 | PCNFU ---
Nutrition Follow-Up Complete: Inadequate oral intake related to altered GI function as evidenced by NPO status, nausea and vomiting about 1 week. Diet advancement- progressing. Diet advanced to full liquid Optimize PO intake when diet is advanced - Intakes 10% full liquids. Will add supplement Goal: Pt current nutrition is Full liquid diet. Nutrition recommendation: Add Ensure Compact TID with full liquid diet for additional 220 kcal and 9 g protein each. Last recorded weight is 49.9 kg. Bowel Motility: +1 BM 04/25/24 Labs Reviewed: No new labs since 04/23/24 Meds Noted: Lomotil, LR Skin: No pressure injuries Additional Notes: Small bowel obstruction resolved. Declining surgery for incarcerated hernia and colon mass. Not taking in much on full liquids. Monitoring diet orders, weights, labs, plan of care Follow up in 3 days
--- NOTE | 2024-04-25 13:46 | PM.PNGS ---
Progress Note: A&P Assessment and Plan (1) Recurrent incisional hernia with incarceration: Code(s): K43.0 - Incisional hernia with obstruction, without gangrene Status: Acute Assessment and Plan: Hernia now reducible and not causing obstruction (2) SBO (small bowel obstruction): Code(s): K56.609 - Unspecified intestinal obstruction, unspecified as to partial versus complete obstruction Status: Acute Assessment and Plan: Resolved with reduction of incarcerated hernia (3) Mass of colon: Code(s): K63.89 - Other specified diseases of intestine Status: Acute Assessment and Plan: Elevated CEA and apple core lesion seen on SBFT. Likely adenocarcinoma. (4) CHF (congestive heart failure): Code(s): I50.9 - Heart failure, unspecified Status: Chronic Plan I had a discussion with patient again today about treatment options. When I spoke to her on Thursday and Thursday she was stating that she did not want to consider surgery. Today she states that if she is going to any ways she would like to go ahead and take her chances with surgery. I have previously discussed with her that without surgery she will likely become obstructed either from the hernia or from the colon mass and that she should consider comfort measures or hospice so that she can be kept comfortable in this event. Today she was initially saying that she does not want to consider hospice and would like to have surgery. I did discuss with her that surgery will have its associated risks which could include stroke, RI, postoperative healing problems, anastomotic leak, or prolonged debilitation. Patient was initially feeling like she still wanted to proceed with surgery, and therefore I discussed adding her on for surgery in the next 1-2 days. She then told the nurse after I had left that she does feel that surgery is too risky and she does not want to have surgery. Have discussed this multiple times with her now and it does seem like she ultimately does not want to go through the risks of surgery. I feel it would be best to discuss with her in more detail that hospice will be meant to keep her comfortable in the event that she does become completely obstructed or has other complications from either the hernia or colon mass. She does have a higher risk for a poor postoperative outcome and I do not feel surgery would be in her best interest. Subjective Subjective Date/Time Seen: 04/25/24 13:46 Interval history: Patient wanted to discuss surgical options again. She had told the hospitalist yesterday that she does to go to hospice and would like to consider surgery. Her pain is now resolved and she is tolerating her diet. Exam GI: Inspection: non-distended GI Palp: Yes Soft to palpation, No Guarding due to palpation present (GI), Yes Hernia present incisional 3-10 cm (soft, reducible, nontender) and No Rebound tenderness present Percussion: Yes normal to percussion Auscultation: normal bowel sounds Objective Data Vital Signs Vital Signs: Vital Signs - 24 hr 04/24/24 14:00 04/24/24 17:03 04/24/24 21:10 Temperature 36.6 C Pulse Rate 53 L 113 H Respiratory Rate 24 H Blood Pressure 175/93 H 160/89 H Pulse Oximetry 98 Oxygen Delivery 04/24/24 21:57 04/24/24 21:05 04/25/24 05:59 Temperature 36.3 C L 36.4 C Pulse Rate 113 H 55 L Respiratory Rate 18 18 Blood Pressure 135/60 159/91 H Pulse Oximetry 100 96 Oxygen Delivery Room Air 04/25/24 08:12 04/25/24 08:00 Temperature Pulse Rate 62 Respiratory Rate Blood Pressure Pulse Oximetry Oxygen Delivery Room Air Intake/Output Intake/Output: Intake & Output 04/22/24 04/23/24 04/24/24 04/25/24 23:59 23:59 23:59 23:59 Intake Total 2120 2000.0 992.5 Output Total 250 200 300 900 Balance -250 1920 1700.0 92.5 Meds/Results Medications: Active Medications Generic Name Dose Route Start Last Admin
[2024-04-25] MEDS: hydrALAZINE HCL 20 MG/ML VIAL 10 MG IV PUSH ×2 (14:07→18:21)
[2024-04-25 15:01] LABS: Iron < 10 ug/dL (37-170)
[2024-04-25] MEDS: amLODIPine BESYLATE 10 MG TABLET PO (16:31)
[2024-04-26 03:49] VITALS: BP 152/69; PULSE 65; RESP 17; TEMP 36.7; O2SAT 95
--- NOTE | 2024-04-26 07:26 | PM.IMPN ---
Progress Note: A&P Assessment and Plan (1) SBO (small bowel obstruction): Code(s): K56.609 - Unspecified intestinal obstruction, unspecified as to partial versus complete obstruction Status: Acute Assessment and Plan: - CT abd/pelvis: 1. Infraumbilical ventral hernia with small bowel obstruction. 2. Focal wall thickening of ascending colon, consistent with primary adenocarcinoma. 3. Mildly enlarged ileocolic lymph node suspicious for metastatic disease. 4. Large sliding hiatal hernia. - General Surgery consulted, Caterina GANN. Provided the following recs: Hernia able to be reduced at bedside with gentle manipulation NG tube placed Shared decision making discussion occurred, patient would not like to undergo surgery though repeat incarceration could happen with this hernia. Small-bowel follow-through tomorrow to assess if SBO is resolving with hernia now being reduced - NG tube placed in ED, XR for confirmation. Has since been discontinued. - IV fluids 04/23- surgery consulted. small bowel xray ordered for this am IMPRESSION: 1. Apple core lesion in the ascending colon consistent with primary colon cancer. Otherwise normal small bowel follow-through with no obstruction. - 04/25- waiting to discuss options for surgery with surgeon 04/26 had a discussion with a surgeon and initially decided to proceed with surgery but later decided that surgery is too risky. I already had very detailed discussion with her on hospice and comfort care as well as care coordination (2) Mass of colon: Code(s): K63.89 - Other specified diseases of intestine Status: Acute Assessment and Plan: - see CT report above - last colonoscopy 10+ years ago, benign per patient. no record on file. - adding CEA level to AM labs per [facility] rec - further POC dependent on result if level indicative of malignancy in the ascending colon (treatment versus comfort measures). suspect patient will elect to move forward with comfort measures for which she will need care coordination consult. 04/23- Elevated CEA and apple core lesion seen on SBFT. Likely adenocarcinoma.pt doesnot want to pursue any further treatments/consults. interested in comfort care 04/24 had a discussion with her about further care. She thinks she understands her situation but thinks she wants to talk to a surgeon about options for surgery. She is leaning toward no chemo/radiation/oncology consult but wants to discuss options with surgeon for her hernia. Nurse is aware and surgery will be notified that pt wants to hear options (3) Recurrent incisional hernia with incarceration: Code(s): K43.0 - Incisional hernia with obstruction, without gangrene Status: Acute Assessment and Plan: - see CT report above - General Surgery consulted, Caterina GANN. Provider was able to reduce hernia at bedside. After shared decision making, patient elected to forego surgical management. Plan for small-bowel follow-through tomorrow. - serial abdominal exams see above (4) Anemia: Qualifiers: Anemia type: unspecified type Qualified Code(s): D64.9 - Anemia, unspecified Code(s): D64.9 - Anemia, unspecified Status: Chronic Assessment and Plan: - Hgb 10.8, previously 9.9 on 05/24/2022 - MCV 87.1, MCHC 30.8, RDW 15.7 - monitor - reports had EDWARDO in the past 04/25- hg 8.5- no c/o bleeding- monitor for now add iron studies (5) Hypertension: Qualifiers: Hypertension type: primary hypertension Qualified Code(s): I10 - Essential (primary) hypertension Code(s): I10 - Essential (primary) hypertension Status: Chronic Assessment and Plan: - chronic, currently 139/70 - continue home medications: Metoprolol 50 mg b.i.d. - monitor 04/26- few very high BP readings last night- asymptomatic- no headaches, no visual changes. Amlodipine 10 mg was added -- it is in 150/60's this am- will monitor Plan Patient here
[2024-04-26 08:31] VITALS: PULSE 66
[2024-04-26] MEDS: amLODIPine BESYLATE 10 MG TABLET PO (08:31)
[2024-04-26] MEDS: METOPROLOL TARTRATE 50 MG TAB PO (08:31)
[2024-04-26] MEDS: FAMOTIDINE 20 MG/2 ML VIAL IV PUSH (08:31)
[2024-04-26 09:00] VITALS: BP 159/96
--- NOTE | 2024-04-26 10:03 | P.CDI_ITS ---
CDI Query Clarification Request Please specify type of heart failure if known. Documentation in the medical record indicates that this patient as a history of CHF. Based on your medical judgement, can you further clarify in the progress note the type of the patients heart failure/dysfunction for this admission if able such as: * Systolic * Diastolic * Combined Systolic and Diastolic * Unknown <Paloma Smallwood RN - Last Filed: 04/26/24 10:06> Provider Comments unknown <Nayla Aguilera APRN - Last Filed: 04/26/24 11:07>
[2024-04-26 11:05] LABS: Percent Iron Saturation < 3 % (20-50)
--- NOTE | 2024-04-26 13:48 | P.DS_ITS ---
DS: Admitting Diagnosis Discharge Date 04/26 Admitting Diagnosis n/v/d DS: Discharge Diagnosis Discharge Diagnosis (1) SBO (small bowel obstruction): Code(s): K56.609 - Unspecified intestinal obstruction, unspecified as to partial versus complete obstruction Status: Acute Assessment and Plan: - CT abd/pelvis: 1. Infraumbilical ventral hernia with small bowel obstruction. 2. Focal wall thickening of ascending colon, consistent with primary adenocarcinoma. 3. Mildly enlarged ileocolic lymph node suspicious for metastatic disease. 4. Large sliding hiatal hernia. - General Surgery consulted, Caterina GANN. Provided the following recs: Hernia able to be reduced at bedside with gentle manipulation NG tube placed Shared decision making discussion occurred, patient would not like to undergo surgery though repeat incarceration could happen with this hernia. Small-bowel follow-through tomorrow to assess if SBO is resolving with hernia now being reduced - NG tube placed in ED, XR for confirmation. Has since been discontinued. - IV fluids 04/23- surgery consulted. small bowel xray ordered for this am IMPRESSION: 1. Apple core lesion in the ascending colon consistent with primary colon cancer. Otherwise normal small bowel follow-through with no obstruction. - 04/25- waiting to discuss options for surgery with surgeon 04/26 had a discussion with a surgeon and initially decided to proceed with surgery but later decided that surgery is too risky. I already had very detailed discussion with her on hospice and comfort care as well as care coordination (2) Mass of colon: Code(s): K63.89 - Other specified diseases of intestine Status: Acute Assessment and Plan: - see CT report above - last colonoscopy 10+ years ago, benign per patient. no record on file. - adding CEA level to AM labs per [facility] rec - further POC dependent on result if level indicative of malignancy in the ascending colon (treatment versus comfort measures). suspect patient will elect to move forward with comfort measures for which she will need care coordination consult. 04/23- * Elevated CEA and apple core lesion seen on SBFT. Likely adenocarcinoma.pt doesnot want to pursue any further treatments/consults. interested in comfort care * 04/24 had a discussion with her about further care. She thinks she understands her situation but thinks she wants to talk to a surgeon about options for surgery. She is leaning toward no chemo/radiation/oncology consult but wants to discuss options with surgeon for her hernia. Nurse is aware and surgery will be notified that pt wants to hear options (3) Recurrent incisional hernia with incarceration: Code(s): K43.0 - Incisional hernia with obstruction, without gangrene Status: Acute Assessment and Plan: - see CT report above - General Surgery consulted, Caterina GANN. Provider was able to reduce hernia at bedside. After shared decision making, patient elected to forego surgical cordell chinchilla. Plan for small-bowel follow-through tomorrow. - serial abdominal exams see above (4) Anemia: Qualifiers: Anemia type: unspecified type Qualified Code(s): D64.9 - Anemia, unspecified Code(s): D64.9 - Anemia, unspecified Status: Chronic Assessment and Plan: - Hgb 10.8, previously 9.9 on 05/24/2022 - MCV 87.1, MCHC 30.8, RDW 15.7 - monitor - reports had EDWARDO in the past 04/25- hg 8.5- no c/o bleeding- monitor for now add iron studies (5) Hypertension: Qualifiers: Hypertens
[2024-04-26 14:00] VITALS: BP 141/73; PULSE 64; RESP 20; TEMP 37.1; O2SAT 97
[2024-04-26] MEDS: IRON SUCROSE COMPLEX 100 MG in SODIUM CHLORIDE 0.9% IV 50 ML 220 MG IVPB (14:25)
== END 2024-04-26 19:00 | disposition home or self-care (01) | DRG 394 ==
LOC: ANHED 12:18 → ANH2MED 13:03
PROVIDERS: Student in an Organized Health Care Education/Training Program; Surgery; Admitting Provider Internal Medicine; Emergency Provider Emergency Medicine; Visit Provider Nurse Practitioner
DX: K43.0 Incisional hernia with obstruction, without gangrene (principal); K56.609 Unspecified intestinal obstruction, unspecified as to partial versus complete obstruction; K63.89 Other specified diseases of intestine; D64.9 Anemia, unspecified; E78.5 Hyperlipidemia, unspecified; I11.0 Hypertensive heart disease with heart failure; I50.9 Heart failure, unspecified; K21.9 Gastro-esophageal reflux disease without esophagitis; Z66 Do not resuscitate; Z90.49 Acquired absence of other specified parts of digestive tract; Z20.822 Contact with and (suspected) exposure to COVID-19
CPT/HCPCS: 36415; 71045; 74176; 74250; 80053; 81001; 82378; 83540; 83550; 83605; 83690; 83735; 85025; 85610; 85730; 87637; 93005; 96374; 96375; 99285; A9270; G0378; J0360; J1756; J1885; J2405; J7030; J7120